=== PATIENT | male | born 1960 | race Caucasian/White ===

== ENCOUNTER 2022-04-12 11:27 | Outpatient (CLI) | payer OTHER, SELFPAY | END 2022-04-12 11:28 | disposition home or self-care (01) | PROVIDERS: PCP Family Medicine; Visit Provider Surgery | DX: Z12.11 Encounter for screening for malignant neoplasm of colon (principal); K63.5 Polyp of colon; K62.1 Rectal polyp | CPT/HCPCS: 45380; 45385; 88300; 88305; 99153; J2250; J3010 ==

== ENCOUNTER 2022-04-30 06:41 | Day surgery (SDC) | payer OTHER, SELFPAY ==
[2022-04-30] MEDS: KETOROLAC OPHTH 0.5% 1 DROP EYE-LEFT ×3 (07:00→07:10)
[2022-04-30] MEDS: TETRACAINE 0.5% OPHTH 1 DROP EYE-LEFT ×2 (07:00→07:05)
[2022-04-30 07:18] VITALS: BMI 35.6
[2022-04-30 07:23] VITALS: BP 137/97; PULSE 78; RESP 18; TEMP 36.7; O2SAT 97
[2022-04-30] MEDS: TETRACAINE 0.5% OPHTH 2 DROP EYE-LEFT (07:25)
[2022-04-30] MEDS: BALANCED SALT IRRIG SOLN 15 ML EYE-LEFT (07:25)
[2022-04-30] MEDS: SODIUM CHLORIDE 0.9 % (FLUSH) 10 ML SYRINGE IVF (07:31)
--- NOTE | 2022-04-30 07:33 | SUR.PREOP ---
The eye drops brought by the patient (Ketorolac and Prednisolone) are examined and I have determined they are labeled by the patient's pharmacy for this patient as prescribed by the surgeon. The bottles are intact, recently obtained and appear to be correct.[id number]
--- NOTE | 2022-04-30 08:24 | W.ANESCHARGE ---
Anesthesia Charges Start Date/Time Anesthesia Start Date: 04/30/22 Anesthesia Start Time: 07:52 Stop Date/Time Anesthesia Stop Date: 04/30/22 Anesthesia Stop Time: 08:25 Summary Emergency: No
--- NOTE | 2022-04-30 08:31 | W.ANESCHARGE ---
Anesthesia Charges Start Date/Time Anesthesia Start Date: 04/30/22 Anesthesia Start Time: 07:52 Stop Date/Time Anesthesia Stop Date: 04/30/22 Anesthesia Stop Time: 08:25 Summary Emergency: No
[2022-04-30 08:32] VITALS: BP 133/89; PULSE 68; RESP 16; TEMP 36.6; O2SAT 94
--- NOTE | 2022-04-30 10:58 | PM.PROC ---
Procedure Note Date Seen: 04/30/22 Will [facility] bill your pro fee for this procedure?: Yes Procedure Description: SURGEON: Eloina Morton MD PREOPERATIVE DIAGNOSIS: Mature cataract, left eye. POSTOPERATIVE DIAGNOSIS: Mature cataract, left eye. NAME OF OPERATION: Phacoemulsification of cataract with posterior chamber intraocular lens implantation in the left eye with trypan blue. ANESTHESIA: Topical. ESTIMATED BLOOD LOSS: Less than 2 cc. COMPLICATIONS: None. PATHOLOGY SPECIMEN: None. INDICATIONS: See consult note for details. The risks, benefits and alternatives of the procedure were explained to the patient, who elected to proceed and signed informed consent to do so. PROCEDURE: The patient was brought to the pre-holding area where the left eye was identified as the operative eye. I placed my initials above this eye. The patient received eye drops consisting of 0.5% tetracaine, 1% tropicamide, 10% phenylephrine, and 0.5% ketorolac. The patient was then brought to the operating room where the left eye was again identified as the operative eye. The eye was prepped with Betadine and draped in the usual sterile ophthalmic fashion. A #15 super-sharp blade was used to create a paracentesis site. 1% non-preserved intracameral lidocaine was injected into the anterior chamber. An air bubble was injected into the anterior chamber. Trypan blue was injected posterior to the air bubble in order to stain Endocoat was injected into the anterior chamber. A 2.4 mm keratome was used to create a three-plane self-sealing incision 1 mm anterior to the temporal limbus. A cystotome was used to create an anterior capsular leaflet. The Utrata forceps were used to extend this to form a continuous curvilinear capsulorrhexis. Hydrodissection was performed. The cataract was removed with phacoemulsification using the [id number] technique. The irrigation and aspiration tip was used to remove the remaining cortex. Healon was injected into the capsular bag. An JOANIE ZCB00 intraocular lens of 20.5 diopters was injected into the capsular bag. The irrigation and aspiration tip was used to remove the remaining viscoelastic. Balanced salt solution on a cannula was used to hydrate the wound, and the wound was found to be watertight. The pupil was noted to be round. DISPOSITION: The patient was taken to the recovery room and discharged to home in stable condition. The patient was instructed to call me or go to the emergency department with any sudden change, including dramatic loss of vision, severe pain in the eye or eyebrow region, nausea, or vomiting. The patient will follow up in the clinic tomorrow morning. Surgeon: Eloina Morton MD
== END 2022-04-30 09:00 | disposition home or self-care (01) ==
PROVIDERS: PCP Family Medicine; Visit Provider Ophthalmology
PROC: (CPT 66984; principal; 2022-04-30 06:45)
DX: H25.89 Other age-related cataract (principal)
CPT/HCPCS: 66984; 00142; A9270; J2250; J3010; V2632

== ENCOUNTER 2022-11-16 07:30 | Outpatient (CLI) | payer OTHER, SELFPAY | END 2022-11-16 07:31 | disposition home or self-care (01) | LOC: NFLDREF 11-18 06:42 | PROVIDERS: PCP Family Medicine; Referring Provider Family Medicine; Visit Provider Family Medicine | DX: Z00.00 Encounter for general adult medical examination without abnormal findings (principal); E11.9 Type 2 diabetes mellitus without complications; M10.9 Gout, unspecified; I10 Essential (primary) hypertension; E78.5 Hyperlipidemia, unspecified; Z12.5 Encounter for screening for malignant neoplasm of prostate | CPT/HCPCS: 80053; 80061; 82043; 82570; 84153 ==

== ENCOUNTER 2023-02-24 09:36 | Outpatient (CLI) | payer OTHER, SELFPAY | END 2023-02-24 09:37 | disposition home or self-care (01) | LOC: NFLDREF 12:09 | PROVIDERS: PCP Family Medicine; Referring Provider Family Medicine; Visit Provider Family Medicine | DX: E11.9 Type 2 diabetes mellitus without complications (principal) | CPT/HCPCS: 82043; 82570 ==

== ENCOUNTER 2023-09-08 07:40 | Outpatient (CLI) | payer MEDICARE, BC, SELFPAY ==
--- OUTSIDE RECORDS SUMMARY | 2023-09-14 18:32 | XMS_ITS | Encounter Summary ---
Author Name Unknown Organization [facility] Address [address] [place] [address] Care Team Providers Care Payment Poster Name Role Phone Unavailable Primary Care Provider Unavailabl e Reason for Visit * Reason Onset Date Comments Pre-visit Intake 05/25/2023 Encounter Details Date Type Department Care Team (Latest Contact Info) Description 05/25/2023 1:00 PM CDT Clinical Communication Virtual Review in [place], [place] [address] [place], [place] [id number] Pre-visit Intake Social History Tobacco Use Types Packs/Day Years Used Date Smoking Tobacco: Never Smokeless Tobacco: Never Overall Financial Resource Strain (CARDIA) Answe r Date Recorded How hard is it for you to pa y for the very basics like food, housing, medical care, and heating? Not hard at all 05/21/2023 Exercise Vital Sign Answer Date Recorde d On average, how many days pe r week do you engage in moderate to strenuous exercise (like a brisk walk)? 7 days 05/21/2023 On average, how many minutes do you engage in exercise at this level? 150+ min 05/21/2023 Hunger Vital Sign Answer Date Recorded Within the past 12 months, y ou worried that your food would run out before you got the money to buy more. Never true 05/21/20 23 Within the past 12 months, t he food you bought just didn't last and you didn't have money to get more. Never true 05/21/2023 PRAPARE - Transportation Answer Date Re corded In the past 12 months, has l ack of transportation kept you from medical appointments or from getting medications? No 05/06 In the past 12 months, has l ack of transportation kept you from meetings, work, or from getting things needed for daily living? No 05/21/2023 Nutrition Answer Date Recorded Nutrition: EVOO Fat Source Unknown 05/21 On average, how many serving s of fruits and vegetables do you eat per day (serving size is equal to 1 cup or approximately the size of a tennis ball)? 5 or more 05/21/2023 Dental Answer Date Recorded Dental: Regular Dentist Yes 05/21/20 Employment Answer Date Recorded Employment status Employed and actively working without restrictions 05/21/2023 Housing Stability Answer Date Recorded What is your living situation today? I have a [facility] place to live 05/21/2023 Sex and Gender Information Value Date Recorded Sex Assigned at Male 01/01/2018 1:22 PM CDT Gender Identity Male 01/01/2018 1:22 PM CDT Sexual Orientation Straight 01/01/2018 1: 22 PM CDT documented as of this encounter Plan of Treatment Not on file documented as of this encounter Visit Diagnoses Not on filedocumented in this encounter
--- OUTSIDE RECORDS SUMMARY | 2023-09-14 18:32 | XMS_ITS | Encounter Summary ---
Author Name Unknown Organization [facility] Address [address] [place] [address] Care Team Providers Care Marketing Secretary Name Role Phone Unavailable Primary Care Provider Unavailabl e Reason for Visit * Appointment Request (Routine) - Closed Specialty Diagnoses / Procedures Referred By Donta danilele Referred To Contact Orthopedic Surgery Diagnoses Arthroplasty Total Knee Replacement Status Post Right Pain Knee Left Referral ID Status Reason Start Date Expiration Date Visits Re quested Visits Authorized [id number] Closed 03/07/2023 03/06/2024 1 1 Encounter Details Date Type Department Care Team (Latest Contact Info) Description 05/27/2023 10:15 AM CDT Comprehensive Visit Department of Orthopedic Surgery in [place], [place] [address] [place] [address] Ruben Pinzon M.D. [address] [place] [phone] Aftercare Total Knee Arthroplasty (Primary Dx) Social History Tobacco Use Types Packs/Day Years [...] money to buy more. Never true 05/21/20 Within the past 12 months, t he [...] your living situation today? I have a [facility] place to live 05/21/2023 Sex and Gender Information Value Date Recorded Sex Assigned at Male 01/01/2018 1:22 PM CDT Gender Identity Male 01/01/2018 1:22 PM CDT Sexual Orientation Straight 01/01/2018 1: 22 PM CDT documented as of this encounter Consult Notes * Ruben Pinzon M.D. - 05/27/2023 10:15 AM CDT REASON FOR CONSULT Patient is 62 y.o. and presents for evaluation of pain of his right total knee arthroplasty HISTORY OF PRESENT ILLNESS The patient originally had a knee replacement done in August of 2018 in [facility]. He would had a right total hip about a year prior to that. He tells me that he was not having a ton of pain in the knee prior to surgery. He does not feel like he is ever really done well since the operation. He has pain that is worse with the activity. It is generalized an anterior in nature. He is tried physical therapy chiropractor massage and anti-inflammatories without much relief. He wanted to ensure that there was nothing sinister going wrong with the implants. The current list of health issues include: Diabetes mellitus type 2, hypertension The surgical history is notable for: Right total knee arthroplasty as described above as well as a right total hip Social history: Patient denies smoking. He is . REVIEW OF SYSTEMS Review of Systems is unremarkable for shortness of breath, chest pain, recent dental issues, fever chills or sweats. OBJECTIVE PHYSICAL EXAM Ortho Exam Alert and oriented x3. No acute distress. Ambulates with a slightly antalgic gait on the right side. With regard to his right knee he has excellent range of motion from 0-125 degrees. He has no overall neutral alignment. He does have some soft tissue tenderness around the knee including over the pes anserine bursa region and distal IT band. He has no evidence of varus, valgus, or AP instability. He has no pain with passive range of motion about his hip above. IMAGING Reveals a right total knee replacement that appears to be well-fixed well- aligned without any evidence of loosening or wear. ASSESSMENT / PLAN 1. Painful right total knee arthroplasty performed elsewhere Had a long conversation the patient today regarding the current symptoms. We discussed all treatment options including operative and non-operative measures. At this point I do not see anything sinister going wrong with the knee today. Certainly, he has a component of soft tissue pain around the knee. I also reviewed his preoperative imaging with him that showed he had moderate arthritic change. He tells me he was not having a lot of pain prior to surgery. As such, I do not think any further surgical intervention on this knee is warranted. I have encouraged him to continue with conservative measures for now. I would be happy to see him back on an as-needed basis. All questions are answered. documented in this encounter Plan of Treatment Not on file documented as of this encounter Visit Diagnoses Diagnosis Aftercare Total Knee Arthroplasty- Primary documented in this encounter
--- OUTSIDE RECORDS SUMMARY | 2023-09-14 18:32 | XMS_ITS | Referral Summary ---
Author Name Unknown Organization [facility] Address [address] [place] [address] Care Team Providers Care Comp Field Case Manager Name Role Phone Unavailable Primary Care Provider Unavailabl e Source Comments Patient records contain information from all sites at [facility]. For routine questions regarding patient records, call [phone] during business hours, M-F 8:00 AM - 5:00 PM Central Time. Record requests for emergency care only can be directed to [phone] at any time.[facility] Allergies Active Allergy Reactions Criticality Noted Date Comments Atorvastatin Myalgia 09/07/2012 Pravastatin Myalgia 11/04/2015 Simvastatin Myalgia 08/27/2010 Symptoms recurred after stop/restart med. 08/27/2010 Medications Medication Sig Dispensed Refills Start Date End Date Status allopurinol (for_ZYLOPRIM) 300 mg tablet Take 300 mg by mouth. 0 11/04/2015 Active amoxicillin (for_AMOXIL) 500 mg capsule 0 10/31/[address] tablet Take by mouth. 0 03/15/2007 Active hydroCHLOROthiazide (for_HYDRODIURIL) 25 mg tablet 0 10/13/2017 Active lisinopril (for_PRINIVIL,ZESTRIL) 20 mg tablet 0 10/13/2017 Active cholecalciferol, vitamin D3, 25 mcg (1,000 Unit) tablet Take 1,000 Units by mouth daily. 0 Active MAGNESIUM GLYCINATE ORAL Take 2 tablets by mouth. 0 Active Lactobacillus acidophilus capsule Take 1 capsule by mouth 2 (two) times a day with meals. 0 Active UNABLE TO FIND Med Name: flax seed oil daily 0 Active tamsulosin (FLOMAX) 0.4 mg 24 hr capsule 0 06/29/2019 Acti ve metFORMIN (GLUCOPHAGE) 500 mg tablet Take 500 mg by mouth 2 (two) times a day with meals. 0 09/22/2021 Active Active Problems Problem Noted Date Diagnosed Date Prostatitis Bacterial Personal History 2 Cancer Prostate Family History 09/24/2019 Prostatitis Chronic 09/24/2019 Deficiency Vitamin D 10/31/2014 Screening Cancer Colon 10/27/2011 Overview: Overview: Colonoscopy 10/2011 normal repeat in 10 years Unilateral Inguinal Hernia W ithout Obstruction Or Gangrene Not Specified As Recurrent 10/07/2011 Overview: Overview: Right: Asymptomatic. Noted 04/2009. Elevated prostate specific antigen (PSA) 009 Overview: Overview: Recheck in 4 months Gout 03/15/2007 Hyperlipidemia Mixed 03/15/2007 Hypertension Essential Primary 03/15/2007 Diabetes Mellitus Type 2 Without Complication Social History Tobacco Use Types Packs/Day Years [...] your living situation today? I have a [facility] place to live 05/21/2023 Sex and Gender Information Value Date Recorded Sex Assigned at Male 01/01/2018 1:22 PM CDT Gender Identity Male 01/01/2018 1:22 PM CDT Sexual Orientation Straight 01/01/2018 1: 22 PM CDT Last Filed Vital Signs Vital Sign Reading Time Taken Comments Blood Pressure 117/84 12/02/2021 10:53 AM CDT Pulse 109 12/02/2021 10:53 AM CDT Temperature 37.3 ??C (99.1 ??F) 09/24/2019 1:30 PM CS T Respiratory Rate 20 04/05/2018 8:56 AM CDT Oxygen Saturation 96% 12/02/2021 10:53 AM CDT RA Inhaled Oxygen Concentration - - Weight - - Height - - Body Mass Index - - Plan of Treatment Not on file
--- OUTSIDE RECORDS SUMMARY | 2023-09-14 18:32 | XMS_ITS | Encounter Summary ---
Author Name Unknown Organization [facility] Address [address] [place] [address] Care Team Providers Care Produce Team Lead Name Role Phone Unavailable Primary Care Provider Unavailabl e Reason for Referral * Outpatient (Routine) - Closed Specialty Diagnoses / Procedures Referred By Donta danielle Referred To Contact Diagnoses Arthroplasty Total Knee Replacement Status Post Right Procedures DX Knee Right Standing Right 3 Views [place] Nunn P.A.-C., M.S. [address] [place] [phone] [facility] Referral ID Status Reason Start Date Expiration Date Visits Re quested Visits Authorized [id number] Closed 03/28/2023 03/27/2024 1 1 Reason for Visit * Outpatient (Routine) - Closed Specialty Diagnoses / Procedures Referred By Donta danielle Referred To Contact Diagnoses Arthroplasty Total Knee Replacement Status Post Right Procedures DX Knee Right Standing Right 3 Views [place] Nunn P.A.-C., M.S. [address] [place] [phone] [facility] Referral ID Status Reason Start Date Expiration Date Visits Re quested Visits Authorized [id number] Closed 03/28/2023 03/27/2024 1 1 Encounter Details Date Type Department Care Team (Latest Contact Info) Description 05/27/2023 8:41 AM CDT - 05/27/2023 11:59 PM CDT Hospital Encounter Department of Radiology, [facility], in [place], [place] [address] [place] [phone] El[place] Nunn P.A.-C., M.S. [address] [place] [phone] Arthroplasty Total Knee Replacement Status Post Right Discharge Disposition: Home or Self Care Social History Tobacco Use Types Packs/Day Years [...] your living situation today? I have a [facility] place to live 05/21/2023 Sex and Gender Information Value Date Recorded Sex Assigned at Male 01/01/2018 1:22 PM CDT Gender Identity Male 01/01/2018 1:22 PM CDT Sexual Orientation Straight 01/01/2018 1: 22 PM CDT documented as of this encounter Medications at Time of Discharge Medication Sig Dispensed Refills Start Date End Date allopurinol (for_ZYLOPRIM) 300 mg tablet Take 300 mg by mouth. 0 11/04/2015 amoxicillin (for_AMOXIL) 500 mg capsule 0 10/31/[address] tablet Take by mouth. 0 03/15/2007 cholecalciferol, vitamin D3, 25 mcg (1,000 Unit) tablet Take 1,000 Units by mouth daily. 0 hydroCHLOROthiazide (for_HYDRODIURIL) 25 mg tablet 0 10/13/2017 Lactobacillus acidophilus capsule Take 1 capsule by mouth 2 (two) times a day with meals. 0 lisinopril (for_PRINIVIL,ZESTRIL) 20 mg tablet 0 10/13/2017 MAGNESIUM GLYCINATE ORAL Take 2 tablets by mouth. 0 metFORMIN (GLUCOPHAGE) 500 mg tablet Take 500 mg by mouth 2 (two) times a day with meals. 0 09/22/2021 tamsulosin (FLOMAX) 0.4 mg 24 hr capsule 0 06/29/2019 UNABLE TO FIND Med Name: flax seed oil daily 0 documented as of this encounter Plan of Treatment Not on file documented as of this encounter Procedures Procedure Name Priority Date/Time Associated Diagnosis Comments DX KNEE RIGHT STANDING RIGHT 3 VIEWS RAD - Routine (most inpatients and all outpatients) 05/27/2023 9:15 AM CDT Arthroplasty Total Knee Replacement Status Post Right documented in this encounter Results * DX Knee Right Standing Right 3 Views (05/27/2023 9:15 AM CDT) Anatomical Region Laterality Modality Lower Extremity, Knee, Muscu loskeletal RST LOS, Musculoskeletal ARZ LOS, Muskuloskeletal FLA LOS Right Compu gerald Tomography 05/27/2023 9:49 AM CDT Impressions 05/27/2023 9:50 AM CDT Right TKA with patellar resurfacing. No periprosthetic lucency or fracture. Trace joint effusion. Vascular calcifications. Mild soft tissue swelling at the anterior aspect of the knee, slightly decreased compared to prior. Severe osteoarthritis of the left knee with chondrocalcinosis. Narrative 05/27/2023 9:50 AM CDT EXAM: ??DX KNEE RIGHT STANDING RIGHT 3 VIEWS Procedure Note Deon Oglesby M.D. - 05/27/2023 EXAM: DX KNEE RIGHT STANDING RIGHT 3 VIEWS IMPRESSION: Right TKA with patellar resurfacing. No periprosthetic lucency orfracture. Trace joint effusion. Vascular calcifications. Mild soft tissue swelling at theanterior aspect of the knee, slightly decreased compared to prior. Severe osteoarthritis of the leftknee with chondrocalcinosis. El[place] Nunn P.A.-C., M.S. IMG DIAGNOS TIC IMAGING PROCEDURES documented in this encounter Visit Diagnoses Diagnosis Arthroplasty Total Knee Replacement Status Post Right documented in this encounter
--- OUTSIDE RECORDS SUMMARY | 2023-09-14 18:32 | XMS_ITS | Encounter Summary ---
Author Name Unknown Organization [facility] Address [address] [place] [address] Care Team Providers Care Enterprise Analyst Name Role Phone Unavailable Primary Care Provider Unavailabl e Reason for Visit * Reason Onset Date Comments Pre-scheduling Questionnaire 03/07/2023 Encounter Details Date Type Department Care Team (Latest Contact Info) Description 03/07/2023 Clinical Communication Department of Orthopedic Surgery in [place], [place] [address] [place] [phone] Prescheduling, Provider Pre-scheduling Questionnaire Social History Tobacco Use Types Packs/Day Years Used Date Smoking Tobacco: Never Smokeless Tobacco: Never Nutrition Answer Date Recorded Nutrition: EVOO Fat Source Unknown 11/10 Nutrition: Servings of Fruits/Vegetables per Day Not on file 11/10/2020 Dental Answer Date Recorded Dental: Regular Dentist Unknown 11/13/19 21 Sex and Gender Information Value Date Recorded Sex Assigned at Male 01/01/2018 1:22 PM CDT Gender Identity Male 01/01/2018 1:22 PM CDT Sexual Orientation Straight 01/01/2018 1: 22 PM CDT documented as of this encounter Miscellaneous Notes * Telephone Encounter - Zhanna Jimenez - 03/07/2023 1:33 PM CDT ORTHO HIP/KNEE PRE-SCHEDULING QUESTION SET ([id number]) documented in this encounter Plan of Treatment Not on file documented as of this encounter Visit Diagnoses Not on filedocumented in this encounter
--- OUTSIDE RECORDS SUMMARY | 2023-09-14 18:32 | XMS_ITS | Encounter Summary ---
Author Name Unknown Organization [facility] Address [address] [place] [address] Care Team Providers Care Sports Equipment Racker Name Role Phone Unavailable Primary Care Provider Unavailabl e Reason for Referral * Outpatient (Routine) - Closed Specialty Diagnoses / Procedures Referred By Joanaac t Referred To Contact Diagnoses Arthroplasty Total Knee Replacement Status Post Right Procedures DX Hip to Ankle Standing Elba Nunn P.A.-C., M.S. [address] [place] [address] [facility] Referral ID Status Reason Start Date Expiration Date Visits Re quested Visits Authorized [id number] Closed 03/28/2023 03/27/2024 1 1 * Outpatient (Routine) - Closed Specialty Diagnoses / Procedures Referred By Contac t Referred To Contact Diagnoses Arthroplasty Total Knee Replacement Status Post Right Procedures DX Knee Right Standing Right 3 Views Elba Nunn P.A.-C., M.S. [address] [place] [phone] [facility] Referral ID Status Reason Start Date Expiration Date Visits Re quested Visits Authorized [id number] Closed 03/28/2023 03/27/2024 1 1 Reason for Visit * Reason Onset Date Comments Appt Request 03/25/2023 Encounter Details Date Type Department Care Team (Late st Contact Info) Description 03/25/2023 Clinical Communication Department of Orthopedic Surgery in [place], [place] [address] [place] [address] Ruben Pinzon M.D. [address] [place] [address] Appt Request Social History Tobacco Use Types Packs/Day Years [...] encounter Miscellaneous Notes * Telephone Encounter - Gertrudis Burns - 03/28/2023 8:36 AM CDT I spoke to patient and we have him scheduled on 05/27. He was ok with the appt date Thank you, Gertrudis documented in this encounter Plan of Treatment Not on file documented as of this encounter Results * DX Hip to Ankle Standing (05/27/2023 9:16 AM CDT) Anatomical Region Laterality Modality Lower Extremity, Hip, Femur, Knee, TibFib, Ankle, Musculoskeletal RST LOS, Musculoskeletal ARZ LOS, Muskuloskeletal FLA LOS N/A Computed Tomography 05/27/2023 9:55 AM CDT Impressions 05/27/2023 9:57 AM CDT Full-length views of both lower extremities obtained for orthopedic measurement purposes. Uncemented right JUJU. Right TKA. Degenerative arthritis left knee with medial compartment narrowing and chondrocalcinosis. Genu varus alignment both lower extremities, more marked on the left. Narrative 05/27/2023 9:57 AM CDT EXAM: ??DX HIP TO ANKLE STANDING Procedure Note Moises Hart M.D. - 05/27/2023 EXAM: DX HIP TO ANKLE STANDING IMPRESSION: Full-length views of both lower extremities obtained for orthopedicmeasurement purposes. Uncemented right JUJU. Right TKA. Degenerative arthritis leftknee with medial compartment narrowing and chondrocalcinosis. Genu varus alignment both lowerextremities, more marked on the left. Elba Nunn P.A.-C., M.S. [facility] DIAGNOS TIC IMAGING PROCEDURES * DX Knee Right Standing Right 3 [...] P.A.-C., M.S. IMG DIAGNOS TIC IMAGING PROCEDURES * Sedimentation Rate (05/27/2023 8:36 AM CDT) Pathologist [facility] Sedimentation Rate, B 2 2 - 20 mm/h 05/27/2023 10:07 AM CDT DTL Blood (Blood, Venous) 05/27/2023 8:36 AM CDT 05/27/2023 8:55 AM CDT Elba Nunn P.A.-C., M.S. LAB BLOOD A DD-ON Performing Organization Address City/[facility] Co de Phone Number [facility] [address] [place] [address] * CRP (C-Reactive Protein) (05/27/2023 8:36 AM CDT) [facility] C-Reactive Protein (CRP), S <3.0 <5.0 mg/L 05/27/2023 9:24 AM CDT DTL Blood (Blood, Venous) 05/27/2023 8:36 AM CDT 05/27/2023 9:08 AM CDT Elba Nunn P.A.-C., M.S. LAB BLOOD A DD-ON Performing Organization Address [facility] de Phone Number [facility] [address] [place], [place] [id number] [place] [address] * (ABNORMAL) CBC with Differential, Blood (05/27/2023 8:36 AM CDT) Pathologist [facility] Hemoglobin 17.6(H) 13.2 - 16.6 g/dL 05/27/2023 9:18 AM CDT DTL Hematocrit 52.1(H) 38.3 - 48.6 % 05/27/2023 9:18 AM CDT DTL Erythrocytes 5.73(H) 4.35 - 5.65 x10(12)/L 05/27/2023 9:18 AM CDT DTL MCV 90.9 78.2 - 97.9 fL 05/27/2023 9:18 AM CDT DTL RBC Distrib Width 13.4 11.8 - 14.5 % 05/27/2023 9:18 AM CDT DTL Platelet Count 275 135 - 317 x10(9)/L 05/27/2023 9:18 AM CDT DTL Leukocytes 7.6 3.4 - 9.6 x10(9)/L 05/27/2023 9:18 AM CDT DTL Neutrophils 4.25 1.56 - 6.45 x10(9)/L 05/27/2023 9:18 AM CDT DHPM Lymphocytes 2.43 0.95 - 3.07 x10(9)/L 05/27/2023 9:18 AM CDT DTL Monocytes 0.63 0.26 - 0.81 x10(9)/L 05/27/2023 9:18 AM CDT DTL Eosinophils 0.21 0.03 - 0.48 x10(9)/L 05/27/2023 9:18 AM CDT DTL Basophils 0.05 0.01 - 0.08 x10(9)/L 05/27/2023 9:18 AM CDT DTL Blood (Blood, Venous) 05/27/2023 8:36 AM CDT 05/27/2023 8:55 AM CDT Elba Nunn P.A.-C., M.S. LAB BLOOD A DD-ON [facility] [address] [place] [address], [place] DTL [facility] [address] [place] [address] DHPM [facility] [address] [place] [address] documented in this encounter Visit Diagnoses Diagnosis Arthroplasty Total Knee Replacement Status Post Right- Primary Arthroplasty Total Knee Replacement Status Post Right Arthroplasty Total Knee Replacement Status Post Right documented in this encounter
--- OUTSIDE RECORDS SUMMARY | 2023-09-14 18:32 | XMS_ITS | Encounter Summary ---
Author Name Unknown Organization [facility] Address [address] [place] [address] Care Team Providers Care Clerk Of Superior Court Name Role Phone Unavailable Primary Care Provider Unavailabl e Reason for Visit * Reason Onset Date Comments [facility] 03/07/2023 Orthopedic surge ry Encounter Details Date Type Department Care Team (Latest Contact Info) Description 03/07/2023 Clinical Communication Department of Orthopedic Surgery in [place], [place] [address] [place] [address] Provider, Unknown [facility] (Orthopedic surgery ) Social History Tobacco Use Types Packs/Day Years [...]
--- OUTSIDE RECORDS SUMMARY | 2023-09-14 18:32 | XMS_ITS | Encounter Summary ---
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 [address] [place] [phone] 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 [address] [place] [phone] [facility] Referral ID Status Reason Start Date Expiration Date Visits Re quested Visits Authorized [id number] Closed 03/28/2023 03/27/2024 1 1 Encounter Details Date Type Department Care Team (Latest Contact Info) Description 05/27/2023 8:41 AM CDT - 05/27/2023 11:59 PM CDT Hospital Encounter Department of Radiology, [facility], in [place], [place] [address] [place] [address] Elba Nunn P.A.-C., M.S. [address] [place] [address] Arthroplasty Total Knee Replacement Status Post Right [...] your living situation today? I have a [facility] place to live 05/21/2023 Sex and [...] Name Priority Date/Time Associated Diagnosis Comments DX HIP TO ANKLE STANDING RAD - Routine (most inpatients and all outpatients) 05/27/2023 9:16 AM CDT Arthroplasty Total Knee Replacement Status Post Right documented in this encounter Results * DX Hip to [...] on the left. Elba Nunn P.A.-C., M.S. IMG DIAGNOS TIC IMAGING PROCEDURES documented in this encounter Visit Diagnoses Diagnosis Arthroplasty Total Knee Replacement Status Post Right documented in this encounter
--- OUTSIDE RECORDS SUMMARY | 2023-09-14 18:32 | XMS_ITS | Encounter Summary ---
Author Name Unknown Organization [facility] Address [address] [place] [address] Care Team Providers Care Lay Out Maker Name Role Phone Unavailable Primary Care Provider Unavailabl e Encounter Details Date Type Department Care Team (Latest Contact Info) Description 05/27/2023 8:26 AM CDT - 05/27/2023 8:40 AM CDT Hospital Encounter Department of Laboratory Medicine and Pathology, [facility] in [place], [place] [address] [place] [phone] Elba Nunn P.A.-C., M.S. [address] [place] [phone] Arthroplasty Total Knee Replacement Status Post Right [...] the money to buy more. Never true 09/16/20 23 Within the past 12 months, t [...] your living situation today? I have a [facility] place to live 05/21/2023 Sex and [...] Procedure Name Priority Date/Time Associated Diagnosis Comments SEDIMENTATION RATE, B Routine 05/27/2023 8:36 AM CDT Arthroplasty Total Knee Replacement Status Post Right CBC WITH DIFFERENTIAL, B Routine 05/27/2023 8:36 AM CDT Arthroplasty Total Knee Replacement Status Post Right C-REACTIVE PROTEIN (CRP), S/P Routine 05/27/2023 8:36 AM CDT Arthroplasty Total Knee Replacement Status Post Right documented in this encounter Results * Sedimentation Rate (05/27/2023 8:36 AM CDT) Sedimentation Rate, B 2 2 - 20 mm/h 05/27/2023 10:07 AM CDT DTL Blood (Blood, Venous) 05/27/2023 8:36 AM CDT 05/27/2023 8:55 AM CDT Elba Nunn P.A.-C., M.S. LAB BLOOD A DD-ON Performing Organization Address City/[facility]/ZIP Co de Phone Number [facility] [address] [place] [address], [facility] 200 [place] [address] * CRP (C-Reactive Protein) (05/27/2023 8:36 AM CDT) C-Reactive Protein (CRP), S <3.0 <5.0 mg/L 05/27/2023 9:24 AM CDT DTL Blood (Blood, Venous) 05/27/2023 8:36 AM CDT 05/27/2023 9:08 AM CDT Elba Nunn P.A.-C., M.S. LAB BLOOD A DD-ON [facility] [address] [place] [address], [facility] DTL [facility] [address] [place] [address] * (ABNORMAL) CBC with Differential, Blood (05/27/2023 8:36 AM CDT) Hemoglobin 17.6(H) 13.2 - 16.6 g/dL 05/27/2023 [...] Nunn P.A.-C., M.S. LAB BLOOD A DD-ON [facility] [address] [place] [address], [place] DTL [facility] [address] [place] [address] [facility] [address] [place] [address] documented in this encounter Visit Diagnoses Diagnosis Arthroplasty Total Knee Replacement Status Post Right documented in this encounter
--- OUTSIDE RECORDS SUMMARY | 2023-09-14 18:32 | XMS_ITS | Clinical Summary ---
Author Name Unknown Organization [facility] Address [address] [place] [address] Care Team Providers Care Server Software Engineer Name Role Phone Unavailable Primary Care Provider Unavailabl e Source Comments Patient records contain information from all sites at [facility]. For routine questions regarding patient records, call [phone] during business hours, M-F 8:00 AM - 5:00 PM Central Time. Record requests for emergency care only can be directed to [phone] at any time.[facility] Allergies Active Allergy Reactions Criticality Noted Date [...] 03/15/2007 Diabetes Mellitus Type 2 Without Complication Family History Medical History Relation Name Comments No Known Problems Brother Prostate cancer Father Breast cancer Mother Depression Mother Diabetes mellitus type II Mother Heart disease Mother Hypertension Mother Depression Sister Relation Name Status Comments Brother Alive Father Mother Sister Alive Social History Tobacco Use Types Packs/Day Years [...] your living situation today? I have a [facility] place to live 05/21/2023 Sex and [...] Mass Index - - Plan of Treatment Health Maintenance Due Date Last Done Comments CT Colonography 1958 Cologuard 1960 Colonoscopy 1958 Colorectal Cancer Screening 1958 Diabetic Office Visit with F oot Exam 1958 Dilated Eye Exam 1958 FIT 1958 HIV Screening 1958 Hepatitis C Screening 1958 Urine Albumin 1958 COVID-19 Vaccine (#1) 04/04/1959 Pneumococcal vaccine (0-64 y ears) (1 of 2 - PCV) 1964 Zoster Vaccines (1 of 2) 2008 Hemoglobin A1C 09/30/2018 03/30/2018 Hepatitis B Vaccines (1 of 3 - Risk 3-dose series) 2018 Lipid (Cholesterol) Screening 10/20/2018 10/20/2017 Creatinine Level (Kidney Fun ction Test) 03/30/2019 03/30/2018, 10/20/2017 Potassium Level 03/30/2019 03/30/2018, 10/20/2017 Sodium Level 03/30/2019 03/30/2018, 10/20/2017 Depression Screening (Annual PHQ-2) 09/05/2022 Office Visit for Blood Press ure Check / Re-check 12/02/2022 12/02/2021 Influenza Vaccine (#1) 2023 0, 08/27/2010, 07/25/2009, Additional history exists DTaP,Tdap,and Td Vaccines (3 - Td or Tdap) 10/31/2027 10/31/2017, 11/23/2007, 10/01/1999
--- OUTSIDE RECORDS SUMMARY | 2023-09-14 18:32 | XMS_ITS ---
Author Name Unknown Organization [facility] Address [address] [place] [address] Care Team Providers Care Education And Development Manager Name Role Phone Unavailable Unavailable Unavailable Surgery Details Not on file Complications Check Surgery Details section. Procedure Estimated Blood Loss Check Surgery Details section. Procedure Findings Check Surgery Details section. Procedure Specimens Taken Check Surgery Details section.
--- OUTSIDE RECORDS SUMMARY | 2023-09-14 18:33 | XMS_ITS | Clinical Summary ---
Author Name Unknown Organization [facility] Address [place], [place] [address] Care Team Providers Care Paperhanger Assistant Name Role Phone Unavailable Primary Care Provider Unavailabl e Allergies Active Allergy Reactions Criticality Noted Date Comments Atorvastatin Myalgia 09/07/2012 Pravastatin Myalgia 11/04/2015 Simvastatin Myalgia 08/27/2010 Symptoms recurred after stop/restart med. 08/27/2010 Medications Medication Sig Dispensed Refills Start Date End Date Status ASPIRIN 81 MG TAB, DELAYED RELEASE take 1 tablet (81 mg) by oral route once daily 0 03/15/2007 Active lisinopril (PRINIVIL; ZESTRIL) 20 mg tabletIndications:Ess ential hypertension Take 1 tablet by mouth once daily. 90 tablet 3 11/04/2015 Active hydrochlorothiazide (HCTZ) 25 mg tabletIndications:Ess ential hypertension Take 1 tablet by mouth once daily. 90 tablet 3 11/04/2015 Active allopurinol (ZYLOPRIM) 300 mg tabletIndications:Gou ty arthropathy Take 1 tablet by mouth once daily. 90 tablet 3 11/04/2015 Active nitrofurantoin macrocrystals/monohyd rate (MACROBID) 100 mg capsuleIndications:Re current UTI (urinary tract infection) Take 1 capsule by mouth 2 times daily. 14 capsule 0 11/24/2015 Active Active Problems Problem Noted Date Diagnosed Date Vitamin D deficiency 10/31/2014 Screen for colon cancer 10/27/2011 Overview: Colonoscopy 10/2011 normal repeat in 10 years Inguinal hernia without ment ion of obstruction or gangrene, unilateral or unspecified, (not specified as recurrent) 10/07/2011 Overview: Right: Asymptomatic. Noted 04/2009. Elevated prostate specific antigen (PSA) 009 Overview: Recheck in 4 months Routine general medical exam ination at a health care facility 03/20/2008 Overview: colonoscopy recommended 09/01/2009 Mixed hyperlipidemia 03/15/2007 Gouty Arthropathy 03/15/2007 Unspecified essential hypertension 03/15/2007 Type II or unspecified type diabetes mellitus without mention of complication, not stated as uncontrolled 08/04/2006 Resolved Problems Problem Noted Date Diagnosed Date Resolved Date 04/29/2009 09/01/2009 Immunizations Name Administration Dates Next Due Influenza, IIV3 (Age >=3 years) 08/27/2010,07/25,07/06/2008,08/02/2007 Td (Age >=7 Years) 09/05/1997 Tdap 11/23/2007 Family History Medical History Relation Name Comments Cancer-prostate Father Urban Cancer-breast Mother Shanice Diabetes Mother Shanice Hypertension Mother Shanice Heart Disease Neg. Hypertension Sister Evelia Psychiatric illness Sister Evelia Anesthesia Problem No Family History Blood Disease No Family History Relation Name Status Comments Brother Urban Alive Father Urban Mother Shanice Neg. Sister Evelia Alive Social History Tobacco Use Types Packs/Day Years Used Date Smoking Tobacco: Never Smokeless Tobacco: Never Tobacco Cessation:Counseling Given: Yes Alcohol Use Standard Drinks/Week Comments No 0 (1 standard drink = 0.6 oz pur e alcohol) Sex and Gender Information Value Date Recorded Sex Assigned at Not on file Gender Identity Not on file Sexual Orientation Not on file Obstetrics History Last Filed Vital Signs Vital Sign Reading Time Taken Comments Blood Pressure 152/104 11/21/2015 12:06 PM CDT Pulse 98 11/21/2015 12:04 PM CDT Temperature 36.9 ??C (98.5 ??F) 11/04/2015 7:58 AM CS T Respiratory Rate - - Oxygen Saturation 97% 11/21/2015 12: 04 PM CDT Inhaled Oxygen Concentration - - Weight 115.8 kg (255 lb 3.2 oz) 016 12:04 PM CDT Height 177.3 cm (5' 9.8) 11/04/2015 7:58 AM TALK SHOW HOST Body Mass Index 36.82 11/04/2015 7:58 AM TALK SHOW HOST Plan of Treatment Health Maintenance Due Date Last Done Comments COVID-19 vaccine series (#1) 04/04/1961 HIV for age 15-65 1973 Hepatitis C screening for age 18-79 1976 Zoster (shingles) series for age 50+ (1 of 2) 2008 BMI (ht and wt on same day) for age 18+ 11/03/2016 11/04/2015 Depression screening for age 12+ 11/03/2016 11/04/2015 Tetanus booster 11/22/2017 11/23/2007, 09/05/1997 Lipids for age 45-75 10/29/2020 10/29/2015, 12/12/2014, 10/23/2014, Additional history exists Colonoscopy through age 75 10/27/2021 10/27/2011, Influenza for age 50-64 05/06/2023 10/07/19 12 (Declined), 08/27/2010, 07/25/2009, Additional history exists Tdap Completed 11/23/2007 Pneumococcal series for age 6-64 Aged Out No longer eligible based on patient's age to complete this topic
== END 2023-09-08 07:41 | disposition home or self-care (01) ==
LOC: NFLDREF 09-14 18:31
PROVIDERS: PCP Family Medicine; Referring Provider Family Medicine; Visit Provider Family Medicine
DX: Z00.00 Encounter for general adult medical examination without abnormal findings (principal); E11.9 Type 2 diabetes mellitus without complications; E78.5 Hyperlipidemia, unspecified; I10 Essential (primary) hypertension; M10.9 Gout, unspecified; R97.20 Elevated prostate specific antigen [PSA]
CPT/HCPCS: 80053; 80061; 82043; 82570; G0103

== ENCOUNTER 2024-09-04 07:52 | Outpatient (CLI) | payer MEDICARE, BC, SELFPAY | END 2024-09-04 07:53 | disposition home or self-care (01) | LOC: NFLDREF 09-07 05:26 | PROVIDERS: PCP Family Medicine; Referring Provider Family Medicine; Visit Provider Family Medicine | DX: Z01.818 Encounter for other preprocedural examination (principal); E11.9 Type 2 diabetes mellitus without complications; N40.0 Benign prostatic hyperplasia without lower urinary tract symptoms; Z12.5 Encounter for screening for malignant neoplasm of prostate | CPT/HCPCS: 80053; 80061; 82043; 82570; G0103 ==

== ENCOUNTER 2024-10-08 07:06 | Day surgery (SDC) | payer MEDICARE, BC, SELFPAY ==
[2024-10-08] VITALS (8 sets, daily range): BP systolic 93–126; BP diastolic 71–92; PULSE 67–89; RESP 16; TEMP 36.7–36.9; O2SAT 93–95; BMI 35.4
--- OUTSIDE RECORDS SUMMARY | 2024-10-08 07:10 | XMS_ITS | Clinical Summary ---
Author Organization [facility] Address [place], [place] [address] Care Team Providers Care Concrete Finishing Machine Operator Name Role Phone Unavailable Primary Care Provider Unavailabl e Allergies Active Allergy Reactions Criticality Noted Date Comments Atorvastatin Myalgia 09/07/2012 Pravastatin Myalgia 11/04/2015 Simvastatin Myalgia 08/27/2010 Symptoms recurred after stop/restart med. 08/27/2010 Medications ASPIRIN 81 MG TAB, DELAYED RELEASE take 1 tablet (81 mg) by oral route once daily 0 7 Active lisinopril (PRINIVIL; ZESTRIL) 20 mg tabletIndications :Essential hypertension Take 1 tablet by mouth once daily. 90 tablet 3 6 Active hydrochlorothiazi de (HCTZ) 25 mg tabletIndications :Essential hypertension Take 1 tablet by mouth once daily. 90 tablet 3 6 Active allopurinol (ZYLOPRIM) 300 mg tabletIndications :Gouty arthropathy Take 1 tablet by mouth once daily. 90 tablet 3 6 Active nitrofurantoin macrocrystals/mon ohydrate (MACROBID) 100 mg capsuleIndication s:Recurrent UTI (urinary tract infection) Take 1 capsule by mouth 2 times daily. 14 capsule 0 6 Active Active Problems Problem Noted Date Diagnosed Date Vitamin D deficiency 10/31/2014 Screen for colon cancer 10/27/2011 Overview (10/27/2011): Colonoscopy 10/2011 normal repeat in 10 years Inguinal hernia without ment ion of obstruction or gangrene, unilateral or unspecified, (not specified as recurrent) 10/07/2011 Overview (10/07/2011): Right: Asymptomatic. Noted 04/2009. Elevated prostate specific antigen (PSA) 009 Overview (04/29/2009): Recheck in 4 months Routine general medical exam ination at a health care facility 03/20/2008 Overview (09/01/2009): colonoscopy recommended 09/01/2009 Mixed hyperlipidemia 03/15/2007 Gouty [...] Recorded Sex Assigned at Not on file Legal Sex Male 5:24 AM BLOCK ENGRAVER Gender Identity Not on file Sexual Orientation Not on file Occupation Industry Job Start Date Job End Date [place] Not on file Not on file Not on file Obstetrics History Last Filed Vital Signs Vital Sign Reading Time Taken Comments Blood Pressure 152/104 11/21/2015 12:06 PM CDT Pulse 98 11/21/2015 12:04 PM CDT Temperature 36.9 C (98.5 F) 11/04/2015 7:58 AM BLOCK ENGRAVER Respiratory Rate - - Oxygen Saturation 97% 11/21/2015 12: 04 PM CDT Inhaled Oxygen Concentration - - Weight 115.8 kg (255 lb 3.2 oz) 016 12:04 PM CDT Height 177.3 cm (5' 9.8) 11/04/2015 7:58 AM BLOCK ENGRAVER Body Mass Index 36.82 11/04/2015 7:58 AM BLOCK ENGRAVER Plan of Treatment Health Maintenance Due Date Last Done Comments HIV for age 15-65 1973 Hepatitis C screening for ag e 18-79 1976 Pneumococcal series for age 50+ (1 of 1 - PCV) 2008 Zoster (shingles) series for age 50+ (1 of 2) 2008 BMI (ht and wt on same day) for age 18+ 11/03/2016 11/04/2015 Depression screening for age 12+ 11/03/2016 11/04/19 16 Tetanus booster 11/22/2017 11/23/2007, 09/05/1997 Lipids for age 45-75 10/29/2020 10/29/2015, 12/12/2014, 10/23/2014, Additional history exists Colonoscopy through age 75 10/27/2021 10/27/2011, COVID-19 vaccine series (2023- season) 2024 Influenza for age 65+ 05/06/2024 08/27/2010 , 07/25/2009, 07/06/2008, Additional history exists RSV vaccine for adults or (1 - 1-dose 75+ series) 2033 Tdap Completed 11/23/2007 Procedures Procedure Name Priority Date/Time Associated Diagnosis Comments LIPID PANEL W REFLEX MEASURED LDL Routine 10/29/2015 7:10 AM BLOCK ENGRAVER Mixed hyperlipidemia from Last 3 Months or Most Recently Relevant to Health Maintenance Results * (ABNORMAL) LIPID PANEL W REFLEX MEASURED LDL (10/29/2015 7:10 AM BLOCK ENGRAVER) CHOLESTEROL,TOTAL 218(H) 100 - 199 mg/dL 10/29/2015 7:43 AM BLOCK ENGRAVER [facility] TRIGLYCERIDES 346(H) <150 mg/dL 10/29/2015 7:43 AM BLOCK ENGRAVER [facility] HDL CHOLESTEROL 30(L) >40 mg/dL 10/29/2015 7:43 AM BLOCK ENGRAVER [facility] NON-HDL CHOLESTEROL 188(H) <145 mg/dl 10/29/2015 7:43 AM BLOCK ENGRAVER [facility] CHOL/HDL RATIO 7.27(H) <4.50 10/29/2015 7:43 AM BLOCK ENGRAVER [facility] LDL CHOLESTEROL 119 <=130 mg/dL 10/29/2015 7:43 AM BLOCK ENGRAVER [facility] PATIENT STATUS FASTING 10/29/2015 7:43 AM BLOCK ENGRAVER [facility] Blood specimen (specimen) BLOOD SPECIMEN / Unknown Venipuncture / Unknown 10/29/2015 7:10 AM BLOCK ENGRAVER 10/29/2015 7:11 AM BLOCK ENGRAVER Gopi Thao MD CHEMISTRY Final Result [facility] [address] [place] [address], from Last 3 Months or Most Recently Relevant to Health Maintenance Insurance [facility]
--- OUTSIDE RECORDS SUMMARY | 2024-10-08 07:10 | XMS_ITS | Clinical Summary ---
Author Organization [facility] Address [address] [place] [address] Care Team Providers Care Money Position Officer Name Role Phone Unavailable Primary Care Provider Unavailabl e Source Comments You are receiving this document as you are listed as the primary care provider,follow-up provider, or the patient has been referred to you for consultation.This is in compliance with the Medicare andMedicaid EHR Incentive Program,which states Providers who transition their patient to another setting of careor provider of care or refers their patient to another provider of care shouldprovide summary care record for each transition of care or referral. [facility] Allergies Active Allergy Reactions Criticality Noted Date Comments Atorvastatin Myalgias 09/07/2012 Pravastatin Myalgias 11/04/2015 Simvastatin Myalgias 08/27/2010 Symptoms recurred after stop/restart med. 08/27/2010 Medications Medication Sig Dispensed Refills Start Date End Date Status methocarbamol (ROBAXIN) 750 MG tablet Take 1 Tablet (750 mg) by mouth three times a day as needed (muscle spasms). 30 Tablet 05/19/2024 Active methylPREDNISolone (MEDROL 21 TABLET DOSEPACK) 4 MG tablet Follow package directions 21 Tablet 05/19/2024 Active Active Problems No known active problems Social History Tobacco Use Types Packs/Day Years Used Date Smoking Tobacco: Never Assessed Sex and Gender Information Value Date Recorded Sex Assigned at Not on file Gender Identity Not on file Sexual Orientation Not on file Last Filed Vital Signs Vital Sign Reading Time Taken Comments Blood Pressure - - Pulse - - Temperature 37.1 C (98.7 F) 05/19/2024 9:33 AM CDT Respiratory Rate - - Oxygen Saturation - - Inhaled Oxygen Concentration - - Weight 109 kg (240 lb 6.4 oz) 05/19/2024 9:33 AM CDT Height 177.8 cm (5' 10) 05/19/2024 9:33 AM CDT Body Mass Index 34.49 05/19/2024 9:33 AM CDT Plan of Treatment Health Maintenance Due Date Last Done Comments Colon Cancer Screening Plan Due 1960 Diabetes Screening- (based on age and BMI) 1960 Hep C Screening (Preventive Services) 1960 Medicare Annual Wellness Visit 1960 PSA Screening Discussion 1960 Cholesterol 1993 Zoster/Shingles (1 of 2) 2008 Pneumococcal 65+ Yrs (1 - PCV) 2023 COVID-19 Vaccine ( - season) 2024 Influenza (#1) 2024 08/27/2010, 07/07, 07/06/2008, Additional history exists DTaP/Tdap/Td (3 - Tdap) 10/31/2027 10/31/19 18, 11/23/2007, 09/05/1997 RSV (1 - 1-dose 75+ series) 2033 HepA Aged Out No longer eligi ble based on patient's age to complete this topic HepB Aged Out No longer eligi ble based on patient's age to complete this topic Hib Aged Out No longer eligi ble based on patient's age to complete this topic IPV (Polio) Aged Out No longer eligi ble based on patient's age to complete this topic MCV4 Aged Out No longer eligi ble based on patient's age to complete this topic
--- NOTE | 2024-10-08 07:38 | W.PM.H&PU ---
History & Physical Update History & Physical Update H&P Reviewed and patient assessed: No changes noted
[2024-10-08] MEDS: SODIUM CHLORIDE 0.9 % (FLUSH) 10 ML SYRINGE IVF (07:55)
[2024-10-08] MEDS: LACTATED RINGERS 500 ML 500 ML 100 ML IV (07:55)
[2024-10-08] MEDS: MIDAZOLAM HCL 1 MG/ML inj IVP (08:28)
[2024-10-08] MEDS: fentaNYL 100 MCG/2 ML inj IVP (08:28)
[2024-10-08] MEDS: CEFAZOLIN 2 GM in 0.9 % SODIUM CHLORIDE Mini-bag 100 ML IVPB (09:23)
--- NOTE | 2024-10-08 09:39 | SUR.OPER ---
PATIENT QUESTIONS ANSWERED SATISFACTORILY PREOPERATIVELY. PATIENT BROUGHT TO OR #3 PER CART. Patient positioned supine on OR #3 bed. The perioperative team supported right arm bilaterally on arm boards. Final approval of positioning by surgeon.
--- NOTE | 2024-10-08 09:45 | P.NB_ITS ---
Nerve Block Nerve Block Time Seen by Provider: 08:33 Date Seen: 10/08/24 Type of block requested by surgeon for post-operative analgesia: axillary Side: right Time out performed: Yes Verification of patient name: Yes Verification of date of : Yes Site marking: site marked Name of person performing procedure: Shola Continuous monitoring Was continuous monitoring of O2 sat, B/P, automotive brake specialist, recorded every 15 minutes?: Yes Procedure Checklist: sterile prep, needles and gloves Ultrasound guided. Images saved: Yes Medications given in 5ml increments after negative aspiration: Ropivicaine %: 0.5 mL: 10 Needle gauge: 22 and Lidocaine %: 2 mL: 15 Patient tolerated procedure well: Yes Additional comments: Needle noted adjacent to nerve Block Charges Block Charge (with Pro Fee): Brachial Plexus Use of Ultrasound Machine for Block: Yes- US Guidance/pain block
--- NOTE | 2024-10-08 10:21 | PM.ORPRC ---
Procedure Note Date of procedure: 10/08/24 Procedure: PREOPERATIVE DIAGNOSIS: 1. Right ulnar nerve neuropathy; cubital tunnel syndrome 2. Right carpal tunnel syndrome POSTOPERATIVE DIAGNOSIS: 1. Right ulnar nerve neuropathy; cubital tunnel syndrome with unstable ulnar nerve upon elbow flexion 2. Right carpal tunnel syndrome PROCEDURE: 1. Right ulnar nerve decompression and anterior subcutaneous transposition 2. Right open carpal tunnel release SURGEON: Todd Barker MD CHIEF OF INTERNAL MEDICINE: Chi ZAIDI (Of note, use of an surveyor's assistant was critical for this case to aid in patient positioning, tissue retraction, nerve protection, arm positioning, suture management, and closure as well as splint application.) ANESTHESIA: Axillary block plus MAC EBL: Less than 25 mL TOURNIQUET: 39 min at 250 torr IMPLANTS: None COMPLICATIONS: None evident INDICATIONS FOR PROCEDURE: The patient is a pleasant 64-year-old male. They have experienced right upper extremity numbness and tingling involving all digits, both median and ulnar nerve distribution, with some difficulty with fine motor skills. Given the patient's difficulty with use of this extremity as well as failure of nonoperative management, recommendation was made for surgery for nerve decompression. DESCRIPTION OF PROCEDURE: Following a thorough discussion of the risks, benefits and alternatives, consent was obtained and the right medial elbow and hand/palm were marked. The patient was brought to the operating room, placed supine on the operating table. Induction of anesthesia was undertaken. Appropriate time out was performed identifying proper patient, site, and procedure. 2 g IV Ancef was administered within 1 hr incision preoperatively. The operative upper extremity was prepped and draped in the appropriate sterile fashion using ChloraPrep prep. The limb was exsanguinated and the tourniquet inflated. We began with the open carpal tunnel release as follows: an incision was made in line with the radial border of the ring finger beginning 1 cm distal to the distal wrist crease and progressing for another 2.5cm distal. Caution was taken to stay proximal to Osorio's cardinal line. Sharp incision through the skin, subcutaneous tissue, and palmar fascia was performed. The thenar musculature was bluntly elevated off the transverse carpal ligament. The ligament was directly visualized, and divided sharply with a 15 blade. This was released from its most proximal to the most distal extent. Metzenbaum scissor was also utilized to release the fascia extension proximally. We confirmed complete release of the transverse carpal ligament. We then turned our attention to the ulnar nerve decompression at the cubital tunnel as follows: a longitudinal incision was made along the medial elbow extending proximal and distal approximately 3-5 cm in either direction. Sharp incision through the skin and blunt dissection through the subcutaneous tissue allowed protection of crossing neurologic structures. Proximally, blunt dissection continued to the depth of the ulnar nerve itself. The nerve was released from its surrounding tissues beginning proximally and moving toward the distal extent. This included ligament of [place], medial intermuscular septum, cubital tunnel, FCU fascial sling, etc. The vena comitantes was maintained with the nerve and caution was taken particularly around the motor branches of the ulnar nerve. After releasing the nerve circumferentially, we then evaluated the need for transposition based on any subluxation / dislocation during elbow flexion. Indeed the nerve showed itself to be unstable with elbow flexion beyond 90? prompting subcutaneous anterior transposition of the nerve. As such, a fascial sling was created at the flexor/pronator mass origin off the medial humeral epicodyle. Additionally, the medial intermuscular septum was visualized and released for approximately 4 cm proximal to the medial humeral epicondyle so the nerve would not rub on/be irritated by this rigid fiber structure. The nerve was then transposed anteriorly, the fascial sling loosely sutured to the subcutaneous layer directly overlying it, and a [place] could easily be positioned alongside the nerve deep to the fascial sling ensuring that there is not excessive tension on the nerve. The tourniquet was deflated, hemostasis achieved, and a thorough irrigation performed. Closure was performed with 2-O Vicryl and 3-0 Monocryl for the subcutaneous and subcuticular closure, respectively. The carpal tunnel was then closed with 4-0 nylon in interrupted mattress fashion. Dressings were applied. Posterior long-arm splint was applied. PLAN: 1. Encourage elevation of the operative extremity. 2. Range of motion of the fingers and hand/wrist as tolerated. 3. Ibuprofen/acetaminophen and/or oxycodone as needed for pain control. 4. Follow up with PA visit or nurse visit in 2 days for splint removal and then at the 12-16 day point for wound check and suture removal.
[2024-10-08] MEDS: BACITRACIN OINTMENT BULK TUBE 1 APPLIC TOPICAL (10:24)
--- NOTE | 2024-10-08 10:36 | P.ANES_ITS ---
Anesthesia Charges Start Date/Time Anesthesia Start Date: 10/08/24 Anesthesia Start Time: 09:13 Stop Date/Time Anesthesia Stop Date: 10/08/24 Anesthesia Stop Time: 10:49 Coding CPT Codes CPT Codes: ANESTH LOWER ARM SURGERY - 89888 ([id number]) QK - DIRECTOR OF COLLECTIONS AND ARCHIVES 2-4 CNCRNT ANES PROC, QX - LINE CONSTRUCTION SUPERVISOR SVC W/ MD MED DIRECTION, P2 - PATIENT W/MILD SYST DISEASE
--- NOTE | 2024-10-08 10:36 | W.ANESCHARGE ---
Anesthesia Charges Start Date/Time Anesthesia Start Date: 10/08/24 Anesthesia Start Time: 09:13 Stop Date/Time Anesthesia Stop Date: 10/08/24 Anesthesia Stop Time: 10:49 Coding CPT Codes CPT Codes: ANESTH LOWER ARM SURGERY - 50144 ([id number]) QK - SISAL PICKER 2-4 CNCRNT ANES PROC, QX - COMPLIANCE VICE PRESIDENT SVC W/ MD MED DIRECTION, P2 - PATIENT W/MILD SYST DISEASE
--- NOTE | 2024-10-08 10:51 | P.ANES_ITS ---
Anesthesia Charges Start Date/Time Anesthesia Start Date: 10/08/24 Anesthesia Start Time: 09:13 Stop Date/Time Anesthesia Stop Date: 10/08/24 Anesthesia Stop Time: 10:49 Coding CPT Codes CPT Codes: ANESTH LOWER ARM SURGERY - 05208 ([id number]) QK - AGRICULTURAL PRODUCE PACKER 2-4 CNCRNT ANES PROC, QX - MEDICAL TERMINOLOGIST SVC W/ MD MED DIRECTION, P2 - PATIENT W/MILD SYST DISEASE
--- NOTE | 2024-10-08 10:51 | W.ANESCHARGE ---
Anesthesia Charges Start Date/Time Anesthesia Start Date: 10/08/24 Anesthesia Start Time: 09:13 Stop Date/Time Anesthesia Stop Date: 10/08/24 Anesthesia Stop Time: 10:49 Coding CPT Codes CPT Codes: ANESTH LOWER ARM SURGERY - 82504 ([id number]) QK - SIZING SPRAYER 2-4 CNCRNT ANES PROC, QX - DIRECTOR OF THE BIOPHYSICS FACILITY SVC W/ MD MED DIRECTION, P2 - PATIENT W/MILD SYST DISEASE
--- NOTE | 2024-10-08 11:19 | SUR.PREOP ---
TIME?OUT:?825 PT/Talia Patino RN/Dr. Shola MDA?VERIFICATION?OF?SURGICAL?SITE right arm,?PROCEDURE,?AND?CONSENT OBTAINED?PRIOR?TO?INVASIVE?PROCEDURE.
== END 2024-10-08 11:45 | disposition home or self-care (01) ==
PROVIDERS: PCP Family Medicine; Visit Provider Orthopaedic Surgery Sports Medicine
PROC: (CPT 64721; principal; 2024-10-08 09:00)
DX: G56.01 Carpal tunnel syndrome, right upper limb (principal); G56.21 Lesion of ulnar nerve, right upper limb; G89.18 Other acute postprocedural pain
CPT/HCPCS: 64721; 64718; 01810; 76942; J0690; J2250; J2371; J2405; J2704; J3010; J3490; J7120

== ENCOUNTER 2024-11-22 09:52 | Outpatient (CLI) | payer MEDICARE, BC, SELFPAY | END 2024-11-22 09:53 | disposition home or self-care (01) | LOC: NFLDREF 09:53 | PROVIDERS: PCP Family Medicine; Visit Provider Family Medicine | DX: E11.9 Type 2 diabetes mellitus without complications (principal); Z01.818 Encounter for other preprocedural examination | CPT/HCPCS: 80048 ==

== ENCOUNTER 2025-01-24 09:01 | Outpatient (CLI) | payer MEDICARE, BC, SELFPAY | END 2025-01-24 09:02 | disposition home or self-care (01) | LOC: NFLDREF 09:01 | PROVIDERS: PCP Family Medicine; Visit Provider Family Medicine | DX: E11.9 Type 2 diabetes mellitus without complications (principal) | CPT/HCPCS: 80048 ==

== ENCOUNTER 2025-02-04 06:02 | Day surgery (SDC) | payer MEDICARE, BC, SELFPAY ==
[2025-02-04] VITALS (20 sets, daily range): BP systolic 93–134; BP diastolic 57–99; PULSE 60–85; RESP 16; TEMP 36.3–36.8; O2SAT 92–97; BMI 32.5
[2025-02-04] MEDS: fentaNYL 100 MCG/2 ML inj IVP (05:44)
--- NOTE | 2025-02-04 06:44 | W.PM.H&PU ---
History & Physical Update History & Physical Update H&P Reviewed and patient assessed: No changes noted
[2025-02-04] MEDS: SODIUM CHLORIDE 0.9 % (FLUSH) 10 ML SYRINGE IVF (07:14)
[2025-02-04] MEDS: LACTATED RINGERS 1000 ML 1,000 ML 100 ML IV ×2 (07:14→09:42)
[2025-02-04] MEDS: ACETAMINOPHEN 500 MG TABLET 1000 MG PO (07:14)
[2025-02-04] MEDS: OXYCODONE (CR) 10 MG TAB.ER.12H PO (07:14)
[2025-02-04] MEDS: MIDAZOLAM HCL 1 MG/ML inj IVP (07:18)
--- NOTE | 2025-02-04 07:26 | P.ANES_ITS ---
Anesthesia Charges Start Date/Time Anesthesia Start Date: 02/04/25 Anesthesia Start Time: 07:28 Stop Date/Time Anesthesia Stop Date: 02/04/25 Anesthesia Stop Time: 09:33 Coding CPT Codes CPT Codes: ANESTH HIP ARTHROPLASTY - 35115 ([id number]) P2 - PATIENT W/MILD SYST DISEASE, QK - FILER AND SANDER 2-4 CNCRNT ANES PROC, QX - METAL SORTER SVC W/ MD MED DIRECTION
--- NOTE | 2025-02-04 07:26 | W.PM.NB ---
Nerve Block Nerve Block Time Seen by Provider: 07:20 Date Seen: 02/04/25 Type of block requested by surgeon for post-operative analgesia: DANY/LFCN Side: left Time out performed: Yes Verification of patient name: Yes Verification of date of : Yes Site marking: site marked Name of person performing procedure: Shola Continuous monitoring Was continuous monitoring of O2 sat, B/P, vehicle monitor technician, recorded every 15 minutes?: Yes Procedure Checklist: sterile prep, needles and gloves Ultrasound guided. Images saved: Yes Medications given in 5ml increments after negative aspiration: Ropivicaine %: 0.5 mL: 30 Needle gauge: 20 Precedex (mcg): 25 Patient tolerated procedure well: Yes Additional comments: Needle noted below psoas tendon needle noted adjacent to LFCN Block Charges Block Charge (with Pro Fee): Other Periph Nerve Block Use of Ultrasound Machine for Block: Yes- US Guidance/pain block
--- NOTE | 2025-02-04 07:26 | W.ANESCHARGE ---
Anesthesia Charges Start Date/Time Anesthesia Start Date: 02/04/25 Anesthesia Start Time: 07:28 Stop Date/Time Anesthesia Stop Date: 02/04/25 Anesthesia Stop Time: 09:33 Coding CPT Codes CPT Codes: ANESTH HIP ARTHROPLASTY - 23278 ([id number]) P2 - PATIENT W/MILD SYST DISEASE, QK - PLANT CONTROL OPERATOR 2-4 CNCRNT ANES PROC, QX - CORN POPPER SVC W/ MD MED DIRECTION
--- NOTE | 2025-02-04 07:30 | CRLHL7_ITS ---
For Patients: As a result of the Cures Act, medical imaging exams and procedure reports are released immediately into your electronic medical record. You may view this report before your referring provider. If you have questions, please contact your health care provider. Fluoroscopy was provided for the Orthopedic surgery service during left total hip arthroplasty. Three spot films acquired. Forty seconds of fluoroscopy time utilized. The spot films demonstrate steps of placement of a left total hip arthroplasty. Dictated by Sushant Valenzuela MD @ 02/04/2025 8:19:33 PM (Electronically Signed)
--- NOTE | 2025-02-04 07:34 | SUR.PREOP ---
TIME?OUT:?0718 PT/RN/MDA?VERIFICATION?OF?SURGICAL?SITE,?PROCEDURE,?AND?CONSENT OBTAINED?PRIOR?TO?INVASIVE?PROCEDURE.
[2025-02-04] MEDS: CEFAZOLIN 2 GM in 0.9 % SODIUM CHLORIDE Mini-bag 100 ML IVPB (07:38)
[2025-02-04] MEDS: TRANEXAMIC ACID 100 MG/ML INJ 1000 MG IV (07:39)
--- NOTE | 2025-02-04 09:02 | PM.ORPRC ---
Procedure Note Date of procedure: 02/04/25 Procedure: PREOPERATIVE DIAGNOSIS: 1. Left hip osteoarthritis, severe, primary POSTOPERATIVE DIAGNOSIS: 1. Left hip osteoarthritis, severe, primary PROCEDURE: 1. Left total hip arthroplasty-anterior approach 2. 86823 - intraoperative fluoroscopy up to 1 hour. SURGEON: Todd Barker MD. FISH AND GAME CLUB MANAGER: Mitul Hooks PA-C; DEJUAN Leigh - Of note, a skilled medical administrative assistant was critical for this case to aid in patient positioning, tissue retraction, limb manipulation/positioning, dislocation/relocation, patient safety, and closure. ANESTHESIA: General endotracheal anesthetic EBL: 300 mL IMPLANTS: DePuy J&J uncemented total hip [place] cup size 54, hole eliminator, +4 neutral liner Actis stem, high offset, size 5 +1.5 mm ceramic 36 mm head. COMPLICATIONS: None evident INDICATIONS: The patient is a pleasant 64-year-old male who has experienced severe left hip pain and difficulty bearing weight. Workup included x-rays which revealed severe osteoarthrosis in the hip. Given the deformity, the dysfunction, and the pain, as well as the failure of nonoperative management, recommendation was made for surgery. FINDINGS: Full-thickness chondral loss diffusely throughout the femoral head as well as acetabulum. Osteophytes around the femoral head/neck junction. Moderate effusion upon entering the joint. DESCRIPTION OF PROCEDURE: Following a thorough discussion of risks, benefits, and alternatives consent was obtained and the left hip was marked. The patient was brought to the operating room and placed supine on the operating table. Induction of anesthesia was undertaken. 2 g IV Ancef and 1 g tranexamic acid was administered within 1 hr of incision preoperatively. Proper time-out was performed identifying proper patient, site, procedure. The operative extremity was prepped and draped in the appropriate sterile fashion using ChloraPrep after the patient was positioned on the [place] table with head in neutral alignment and all bony prominences well padded. C-arm fluoroscopic imaging was utilized to confirm proper pelvis rotation and position, and to get true AP films of both the contralateral left, and the affected left hip. This is for comparison. A longitudinal incision was made starting approximately 1 cm distal to the ASIS, and 3-4 cm lateral. The incision was extended distally aiming toward the lateral border the patella. Sharp incision through skin and bovie cautery through the subcutaneous tissue allowed identification of the TFL fascia. This was sharply divided, and the fascia bluntly released from the muscle fibers as we dissected medial. Upon coming to the medial border, we were able to retract the TFL laterally, and penetrated the deeper fascia and identify the crossing circumflex vessels. These were ligated/cauterized. The rectus was elevated from the capsule, and retractors placed laterally and medially along the femoral neck to help with visualization of the capsule. We then performed an inverted T capsulotomy. The capsule was tagged for later repair. Retractors were placed inside the capsule. The femoral neck was visualized after releasing medially down to the lesser trochanter, along the saddle laterally, and up onto the acetabulum. The femoral neck cut was made in line with our preoperative templating. The head was removed in a single piece, and sized. We turned our attention to acetabular preparation. Initially, the labrum was resected from around the perimeter, the pulvinar was excised, allowing us to visualize the false wall. We started the reaming with a 43 mm reamer. This was medialized down to the true wall. We then enlarged our reamers sequentially up to one size less than the selected cup size. We trialed at the same size and found it to have an excellent fit. The selected cup was then opened, inserted, and impacted in line with the goal of 40-45? of abduction, and 20-25? of anteversion. This was confirmed on C-arm fluoroscopic imaging to be in the appropriate/goal position. Once the cup was placed we placed a hole eliminator and a liner consistent with preop planning. Attention was turned to the femoral preparation. The limb was extended, externally rotated, and adducted. The posteromedial capsule was released, as retractors were placed allowing excellent access to the proximal femur. Initially a box feeder was followed by canal finder followed by various broaches. We broached sequentially up to size noted above, found it to have excellent rotational control, and trialing various heads and necks, revealed that appropriate neck offset, and the above noted head size provided the greatest stability, and adventism of length, and offset. C-arm fluoroscopic imaging confirmed position of the stem, as well as leg lengths, which were compared with the pre procedure all fluoroscopic images. Trial implants were removed, the real femoral stem inserted, as was the ceramic head. After reducing, the leg was placed through range of motion and stability was confirmed anterior, posterior, and lateral. A 3 min Betadine soak was then performed, and thorough irrigation with normal saline followed. Closure of the capsule was performed with #1 PDS. Bleeding was confirmed to be controlled at this stage, and the TFL fascia was closed with #0 strata fix. Subcutaneous, and subcuticular closure was performed with 2-0 Vicryl and 4-0 Monocryl, respectively. Dressings were applied, and the patient was awoken from anesthesia and transferred the PACU in stable condition. A skilled medical administrative assistant was critical for this case to aid in patient positioning, tissue retraction, proximal femur exposure, limb manipulation/positioning, dislocation/relocation, patient safety, and closure. PLAN: 1. Weight bear as tolerated operative extremity. 2. 23 hr perioperative antibiotics. 3. Ice. 4. PT/OT consults for ambulation assistance/mobility education. 5. Social work consult for discharge planning. 6. DVT prophylaxis with at SCDs and Xarelto x5 days followed by aspirin for a total of 1 month..
--- NOTE | 2025-02-04 09:32 | P.ANES_ITS ---
Anesthesia Charges Start Date/Time Anesthesia Start Date: 02/04/25 Anesthesia Start Time: 07:28 Stop Date/Time Anesthesia Stop Date: 02/04/25 Anesthesia Stop Time: 09:33 Coding CPT Codes CPT Codes: ANESTH HIP ARTHROPLASTY - 57788 ([id number]) P2 - PATIENT W/MILD SYST DISEASE, QK - VOCATIONAL HORTICULTURE INSTRUCTOR 2-4 CNCRNT ANES PROC, QX - EDGING MACHINE OPERATOR SVC W/ MD MED DIRECTION
--- NOTE | 2025-02-04 09:32 | W.ANESCHARGE ---
Anesthesia Charges Start Date/Time Anesthesia Start Date: 02/04/25 Anesthesia Start Time: 07:28 Stop Date/Time Anesthesia Stop Date: 02/04/25 Anesthesia Stop Time: 09:33 Coding CPT Codes CPT Codes: ANESTH HIP ARTHROPLASTY - 49357 ([id number]) P2 - PATIENT W/MILD SYST DISEASE, QK - MANAGER CLIENT 2-4 CNCRNT ANES PROC, QX - WHEEL MOLDER SVC W/ MD MED DIRECTION
--- NOTE | 2025-02-04 09:35 | CRLHL7_ITS ---
For Patients: As a result of the Cures Act, medical imaging exams and procedure reports are released immediately into your electronic medical record. You may view this report before your referring provider. If you have questions, please contact your health care provider. INDICATION: Total left hip replacement. TECHNIQUE: Pelvis one view. Left hip two views. COMPARISON: 11/20/2024. FINDINGS: Left hip arthroplasty appears appropriately positioned. Soft tissue gas consistent with recent surgery. Right hip arthroplasty appears intact. No acute osseous abnormality or other significant interval change. IMPRESSION: Expected changes status post left hip arthroplasty. Dictated by Pepito Cazares MD @ 02/05/2025 12:06:43 PM (Electronically Signed)
[2025-02-04] MEDS: IBUPROFEN 200 MG TABLET 400 MG PO (10:24)
[2025-02-04] MEDS: hydrOXYzine pamoate 25 MG CAPSULE PO (10:24)
[2025-02-04] MEDS: LACTATED RINGERS 1000 ML 1,000 ML 30 ML IV (10:54)
[2025-02-04] MEDS: ACETAMINOPHEN 325 MG TABLET PO (12:15)
[2025-02-04] MEDS: METOCLOPRAMIDE HCL 5 MG/ML INJ 10 MG IVP (13:08)
--- NOTE | 2025-02-04 14:06 | SUR.PHASEII ---
Patient passed OT. Vital signs stable, discharged home @ 1400.
== END 2025-02-04 14:00 | disposition home or self-care (01) ==
LOC: OR 06:03
PROVIDERS: PCP Family Medicine; Visit Provider Orthopaedic Surgery Sports Medicine
PROC: (CPT 27130; principal; 2025-02-04 07:30)
DX: M16.12 Unilateral primary osteoarthritis, left hip (principal); G89.18 Other acute postprocedural pain; E11.9 Type 2 diabetes mellitus without complications; Z79.84 Long term (current) use of oral hypoglycemic drugs; Z79.82 Long term (current) use of aspirin; G47.33 Obstructive sleep apnea (adult) (pediatric); Z99.89 Dependence on other enabling machines and devices; E78.5 Hyperlipidemia, unspecified; I10 Essential (primary) hypertension
CPT/HCPCS: 27130; 01214; 36415; 64450; 73501; 76000; 76942; 82962; 86850; 86900; 86901; 97110; 97116; 97161; 97165; 97530; 97535; A9270; C1776; J0330; J0690; J1100; J1171; J2250; J2371; J2405; J2704; J2765; J2795; J3010; J3490; J7120

== ENCOUNTER 2025-04-28 10:16 | Emergency (ER) | payer MEDICARE, BC, SELFPAY ==
[2025-04-28] VITALS (29 sets, daily range): BP systolic 81–135; BP diastolic 50–84; PULSE 87–108; RESP 16–18; TEMP 36.6; O2SAT 91–100; BMI 34.1
--- OUTSIDE RECORDS SUMMARY | 2025-04-28 10:19 | XMS_ITS | Clinical Summary ---
Author Organization [facility] Address [address] [place] [address] Care Team Providers Care Asset Protection Representative Name Role Phone Unavailable Primary Care Provider [...] for each transition of care or referral. [email or web address] Allergies Active Allergy Reactions Criticality Noted Date Comments Atorvastatin Myalgias 09/07/2012 Pravastatin Myalgias 11/04/2015 Simvastatin Myalgias 08/27/2010 Symptoms recurred after stop/restart med. 08/27/2010 Medications metFORMIN (GLUCOPHAGE) 500 MG tablet Take 1 Tablet (500 mg) by mouth two times a day with meals. Active lisinopril (ZESTRIL) 2.5 MG tablet Take 1 Tablet (2.5 mg) by mouth daily. Active hydroCHLOROthia zide (ORETIC) 12.5 MG tablet Take 1 Tablet (12.5 mg) by mouth daily. Active diclofenac (VOLTAREN) 75 MG enteric coated tablet Take 1 Tablet (75 mg) by mouth two times daily as needed (Pain). 60 Tablet 11/26/2024 Active allopurinol (ZYLOPRIM) 300 MG tablet Take 1 Tablet (300 mg) by mouth daily. 09/18/2024 Active amoxicillin (AMOXIL) 500 MG capsule Take 4 Capsules (2,000 mg) by mouth as needed. Prior to dental work 09/18/2024 Active tamsulosin 0.4 MG CAPS capsule Take 1 Capsule (0.4 mg) by mouth daily. Active Active Problems Problem Noted Date Diagnosed Date Primary osteoarthritis of left hip 12/05/2024 History of right hip replacement 12/05/2024 Social History Tobacco Use Types Packs/Day Years Used Date Smoking Tobacco: Never Passive Smoke Exposure: Never Tobacco Cessation:Counseling Given: Not Answered Alcohol Use Standard Drinks/Week Comments Not Currently 0 (1 standard drink = 0.6 oz pur e alcohol) Sex and Gender Information Value Date Recorded Sex Assigned at Not on file Legal Sex Male 8:52 AM CDT Gender Identity Not on file Sexual Orientation Not on file Last Filed Vital Signs Vital Sign Reading Time Taken Comments Blood Pressure - - Pulse - - Temperature 36.6 C (97.9 F) 11/26/2024 10:48 AM CDT Respiratory Rate - - Oxygen Saturation - - Inhaled Oxygen Concentration - - Weight 109.3 kg (241 lb) 12/05/2024 10:44 AM CDT Height 177.8 cm (5' 10) 12/05/2024 10:44 AM CDT Body Mass Index 34.58 12/05/2024 10:44 AM CDT Plan of Treatment Health Maintenance Due Date Last Done Comments Colon Cancer Screening Plan Due 1958 Diabetes: Albumin/Creatinine Ratio, Urine 1958 Diabetes: Creatinine 1958 Diabetes: Eye Exam 1958 Diabetes: Foot Exam 1958 Diabetes: HGBA1C 1958 Diabetes: Lipid Panel 1958 Hep B Immunization Discussion 1958 Hep C Screening (Preventive Services) 1960 Medicare Annual Wellness Visit 1960 PSA Screening Discussion 1958 Pneumococcal Vaccine 50+ Yrs (1 of 2 - PCV) 1977 Zoster/Shingles Vaccine (1 o f 2) 2008 COVID-19 Vaccine (2023-2 5 season) 2024 Influenza Vaccine (#1) 2025 0, 08/02/2007 DTaP/Tdap/Td Vaccine (3 - Tdap) 10/31/2027 10/31/2017, 11/23/2007 RSV Vaccine (1 - 1-dose 75+ series) 2033 HepA Vaccine Aged Out No longer eligi ble based on patient's age to complete this topic HepB Vaccine Aged Out No longer eligi ble based on patient's age to complete this topic Hib Vaccine Aged Out No longer eligi ble based on patient's age to complete this topic IPV (Polio) Vaccine Aged Out No longe r eligible based on patient's age to complete this topic MCV4 Vaccine Aged Out No longer eligi ble based on patient's age to complete this topic Meningococcal B Vaccine Aged Out No l onger eligible based on patient's age to complete this topic Insurance MEDICARE MANAGED CARE [facility] [place] [phone]
--- OUTSIDE RECORDS SUMMARY | 2025-04-28 10:19 | XMS_ITS | Clinical Summary ---
Author Organization [email or web address] Address [address] [place] [id number] Care Team Providers Care Automobile Accessories Salesperson Name Role Phone Unavailable Primary Care Provider [...] Diagnosed Date Resolved Date 04/29/2009 09/01/2009 Immunizations Immunization Administration Dates Next Due Influenza, IIV3 (Age [...] on file Legal Sex Male 5:24 AM DISEASE CASE MANAGER Gender Identity Not on file Sexual Orientation Not on file Occupation Industry Job Start Date Job End Date [place] Not on file Not on file Not on file Obstetrics History Last Filed Vital Signs Vital Sign Reading Time Taken Comments Blood Pressure 152/104 11/21/2015 12:06 PM CDT Pulse 98 11/21/2015 12:04 PM CDT Temperature 36.9 C (98.5 F) 11/04/2015 7:58 AM DISEASE CASE MANAGER Respiratory Rate - - Oxygen Saturation 97% 11/21/2015 12: 04 PM CDT Inhaled Oxygen Concentration - - Weight 115.8 kg (255 lb 3.2 oz) 016 12:04 PM CDT Height 177.3 cm (5' 9.8) 11/04/2015 7:58 AM DISEASE CASE MANAGER Body Mass Index 36.82 11/04/2015 7:58 AM DISEASE CASE MANAGER Plan of Treatment Health Maintenance Due Date Last Done Comments Hepatitis C screening for age 18-79 1976 Pneumococcal series for age 50+ [...] age 75 10/27/2021 10/27/2011, COVID-19 vaccine series ( - 2023- season) 2024 Influenza Vaccine (#1) 2025 0, 07/25/2009, 07/06/2008, Additional history exists RSV vaccine for adults or (1 - 1-dose 75+ series) 2033 Hepatitis B series for 19+ Aged Out N o longer eligible based on patient's age to complete this topic Procedures Procedure Name Priority Date/Time Associated Diagnosis Comments LIPID PANEL W REFLEX MEASURED LDL Routine 10/29/2015 7:10 AM DISEASE CASE MANAGER Mixed hyperlipidemia from Last 3 Months or Most Recently Relevant to Health Maintenance Results * (ABNORMAL) LIPID PANEL W REFLEX MEASURED LDL (10/29/2015 7:10 AM DISEASE CASE MANAGER) CHOLESTEROL,TOTAL 218(H) 100 - 199 mg/dL 10/29/2015 7:43 AM DISEASE CASE MANAGER [facility] TRIGLYCERIDES 346(H) <150 mg/dL 10/29/2015 7:43 AM DISEASE CASE MANAGER [facility] HDL CHOLESTEROL 30(L) >40 mg/dL 10/29/2015 7:43 AM DISEASE CASE MANAGER [facility] NON-HDL CHOLESTEROL 188(H) <145 mg/dl 10/29/2015 7:43 AM DISEASE CASE MANAGER [facility] CHOL/HDL RATIO 7.27(H) <4.50 10/29/2015 7:43 AM DISEASE CASE MANAGER [facility] LDL CHOLESTEROL 119 <=130 mg/dL 10/29/2015 7:43 AM DISEASE CASE MANAGER [facility] PATIENT STATUS FASTING 10/29/2015 7:43 AM DISEASE CASE MANAGER [facility] Blood specimen (specimen) BLOOD SPECIMEN / Unknown Venipuncture / Unknown 10/29/2015 7:10 AM DISEASE CASE MANAGER 10/29/2015 7:11 AM DISEASE CASE MANAGER Gopi Thao MD CHEMISTRY Final Result [facility] [address] [place] [address], [place] [phone] from Last 3 Months or Most Recently Relevant to Health Maintenance Insurance [facility]
--- NOTE | 2025-04-28 10:28 | CRLHL7_ITS ---
For Patients: As a result of the 21st Century Cures Act, medical imaging exams and procedure reports are released immediately into your electronic medical record. You may view this report before your referring provider. If you have questions, please contact your health care provider. INDICATION: Hematuria. Fall. Trauma to groin. TECHNIQUE: CT pelvis acquired with 100 cc Omnipaque 350 IV contrast. COMPARISON: None. FINDINGS: Urinary bladder is distended. Is partially obscured by streak artifact from bilateral hip arthroplasties. Metal reduction series were submitted only partially spans the urinary bladder. There is evidence of a heterogeneous enlarged prostate with mass effect on the posterior bladder wall. Mild indeterminate urinary bladder wall thickening is seen. No significant inflammatory fat stranding is seen. Indeterminate rectal wall thickening, not well evaluated on CT. The remainder of the visualized bowel is unremarkable. A fat containing umbilical hernia is noted measuring approximately 3.9 x 2.1 centimeters. Some soft tissue infiltration of the fat could represent mild inflammation. Small fat containing inguinal hernias are noted. No ascites. No organized drainable fluid collection. A 10 x 18 millimeter left iliac lymph node is seen (series 2, image 32). There are smaller lymph nodes noted. No inguinal lymphadenopathy. No subcutaneous hematoma. Minimal stranding within the subcutaneous fat of the anterior abdomen, likely chronic inflammation. Bone windows were not submitted. This limits evaluation of the bones. Bilateral hip arthroplasties are again noted. There is heterotopic ossification noted about the hips with no definite acute fracture. IMPRESSION: 1. The pelvis is obscured by bilateral hip arthroplasties. 2. Distended urinary bladder with mild thickening. Obscured enlarged prostate with mass effect on the posterior bladder wall. Recommend correlation with urinalysis, urine cytology and PSA. Follow-up cystoscopy may be performed for further evaluation if clinically indicated. 3. Small fat containing umbilical hernia. Mild infiltration of the hernia fat could represent inflammation. Recommend correlation with physical examination. 4. Borderline dilated left pelvic lymph node with otherwise no lymphadenopathy. Recommend close attention on follow-up. Please note that all CT scans at this facility use dose modulation, iterative reconstruction, and/or weight-based dosing when appropriate to reduce radiation dose to as low as reasonably achievable. Dictated by Virgil Good MD @ 04/28/2025 11:22:15 AM (Electronically Signed)
--- NOTE | 2025-04-28 10:29 | ED.GENADULT ---
HPI - General Adult General Chief complaint: Urogenital Problems, Male Stated complaint: bleeding from penis Time Seen by Provider: 04/28/25 10:20 Source: patient Mode of arrival: ambulatory Limitations: no limitations History of Present Illness HPI narrative: 64-year-old male presenting today with bleeding from his penis. Patient states he woke up this morning noticed that there was blood coming out of his penis. This comes at any time, not associated with having to urinate. He denies any pain. He denies inserting anything into the penis. He states that yesterday he fell on a piece of machinery right into the groin area. Did really bother him last night. He is not having pain in the area today. He denies any swelling of the testicles or penis. He denies any abdominal pain. He denies any dizziness, diaphoresis or shortness of breath. This has never happened before. Patient is not on any blood thinners, does take a daily baby aspirin. Related Data Home Medications ?Medication ?Instructions ?Recorded ?Confirmed aspirin 81 mg tablet,delayed 81 mg PO QDAY 11/23/22 03/22/25 release Held on 02/04/25. Instructions: Resume on 03/04/25. cholecalciferol (vitamin D3) 25 25 mcg PO DAILY 11/23/22 03/22/25 mcg (1,000 unit) tablet flaxseed oil 1,000 mg capsule 2,600 mg PO QDAY 11/23/22 03/22/25 glucosamine HCl 1,500 mg tablet 1,500 mg PO BID 11/23/22 03/22/25 magnesium 200 mg tablet 200 mg PO QDAY 11/23/22 03/22/25 berberine chloride 500 mg capsule 500 mg PO .QD 01/24/25 03/22/25 diclofenac sodium 75 mg 75 mg PO BID PRN pain 01/24/25 03/22/25 tablet,delayed release Held on 02/04/25. Instructions: Resume on 02/25/25. Previous Rx's ?Medication ?Instructions ?Recorded allopurinol 300 mg tablet 300 mg PO QDAY #90 tabs 09/18/24 amoxicillin 500 mg capsule 2,000 mg (4 x 500 mg) PO ONCE #12 09/18/24 Held on 02/04/25. caps Instructions: Resume on 02/25/25. hydrochlorothiazide 25 mg tablet 25 mg PO QDAY #90 tabs 09/18/24 lisinopril 20 mg tablet 20 mg PO QDAY #90 tabs 09/18/24 tamsulosin 0.4 mg capsule 0.8 mg (2 x 0.4 mg) PO QDAY #180 09/18/24 caps hydrocortisone 2.5 % topical cream 1 applic topical BID PRN rash #30 10/11/24 grams Blood Glucose Meter #1 ea 11/23/24 Diabetic Test Strips #100 ea 11/23/24 lancets 28 gauge (CareTouch Safety #100 ea 11/23/24 Lancets) metformin 500 mg tablet 500 mg PO BID #180 tabs 01/24/25 Allergies Allergy/AdvReac Type Severity Reaction Status Date / Time [id number]-[id number]-[id number] Reductase AdvReac Intermediate Muscle Pain Verified 04/28/25 10:56 Inhibitor cotton roll Allergy Intermediate Rash Uncoded 04/28/25 10:56 Review of Systems Status of ROS: Reports: 10 or more systems reviewed and unremarkable except as noted in History and below PFSH PFSH Medical History Type 2 diabetes mellitus ?E11.9 - Type 2 diabetes mellitus without complications (ICD-10) Obstructive sleep apnea treated with continuous positive airway pressure (CPAP) ?G47.33 - Obstructive sleep apnea (adult) (pediatric) (ICD-10) ?Z99.89 - Dependence on other enabling machines and devices (ICD-10) Hypertension ?I10 - Essential (primary) hypertension (ICD-10) Hyperlipidemia ?E78.5 - Hyperlipidemia, unspecified (ICD-10) High prostate specific antigen (PSA) ?R97.20 - Elevated prostate specific antigen [PSA] (ICD-10) Gout ?M10.9 - Gout, unspecified (ICD-10) Benign prostatic hyperplasia ?N40.0 - Benign prostatic hyperplasia without lower urinary tract symptoms (ICD-10) Health care directive on file ?Z78.9 - Other specified health status (ICD-10) Surgical History History of total left hip arthroplasty (02/04/25) ?Z96.642 - Presence of left artificial hip joint (ICD-10) S/P cubital tunnel release (10/08/24) ?Z98.890 - Other specified postprocedural states (ICD-10) History of carpal tunnel surgery of right wrist (10/08/24) ?Z98.890 - Other specified postprocedural states (ICD-10) History of total right hip replacement (09/21/17) ?Z96.641 - Presence of right artificial hip joint (ICD-10) Status post trigger finger release (04/15/21) ?Z98.890 - Other specified postprocedural states (ICD-10) History of carpal tunnel surgery of left wrist (04/15/21) ?Z98.890 - Other specified postprocedural states (ICD-10) History of cataract extraction with lens replacement 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) ?Z96.651 - Presence of right artificial knee joint (ICD-10) History of hernia repair ?Z98.890 - Other specified postprocedural states (ICD-10) ?Z87.19 - Personal history of other diseases of the digestive system (ICD-10) History of arthroscopic knee surgery ?Z98.890 - Other specified postprocedural states (ICD-10) Social History What is your current living situation?: I presently have a place to live Problems where you live: no known problems In the past 12 months, utilities in danger of being shut off: no In past 12 months, lack of transportation kept you from medical appts, meetings, work, or getting things needed for daily living: no In the past 12 mos, have been you worried that your food would run out before you had money to buy more?: never true In the past 12 mos, the food you bought just didn't last and you didn't have money to buy more?: never true Smoking Status: Never smoker Do you use any of these nicotine containing products: None How often do you have a drink containing alcohol: never How often do you have six or more drinks on one occasion: Never AUDIT-C Alcohol total score: 0 Non-prescribed substance use: denies use Caffeine: Yes (Mt. ledezma daily) How often does anyone, including family, friends and others, physically hurt you: never How often does anyone, including family, friends and others, insult or talk down to you: never How often does anyone, including family, friends and others, threaten you with harm: never How often does anyone, including family, friends and others, scream or curse at you: never Exam Narrative: Exam Narrative: Overweight, well-developed patient in no acute distress. Alert and oriented. Answers questions appropriately. Mood and affect are appropriate. Thoughts are goal oriented and rational. No tangential or magical thinking noted. Patient speaks in full sentences without needing to catch his breath. HEENT: Normocephalic atraumatic. Pupils are equally round reactive to light. Extraocular muscles are intact. Conjunctivae are moist without any icterus noted. Moist mucous membranes. Abdomen: Protuberant, soft with normal bowel sounds. : Fresh blood coming out of the urethral meatus. There is no penile scrotal swelling noted. No tenderness to the groin area. Const: Vital Signs, click to edit/add: Vital Signs - 24 hr 04/28/25 10:21 04/28/25 11:27 04/28/25 12:49 Temperature 97.9 F Pulse Rate Pulse Rate [Pulse Oximeter] 97 89 108 H Respiratory Rate 16 18 18 Blood Pressure Blood Pressure [Ri ght Upper Arm] 135/84 101/57 L 92/68 Pulse Oximetry 95 98 98 Oxygen Delivery Me thod Room Air Room Air Room Air 04/28/25 13:01 04/28/25 13:02 04/28/25 13:15 Temperature Pulse Rate 101 H 102 H 103 H Pulse Rate [Pulse Oximeter] Respiratory Rate Blood Pressure 117/77 Blood Pressure [Ri ght Upper Arm] Pulse Oximetry 98 98 98 Oxygen Delivery Me thod 04/28/25 13:17 04/28/25 13:18 04/28/25 13:30 Temperature Pulse Rate 104 H 103 H 98 Pulse Rate [Pulse Oximeter] Respiratory Rate Blood Pressure 95/70 Blood Pressure [Ri ght Upper Arm] Pulse Oximetry 100 98 92 Oxygen Delivery Me thod 04/28/25 13:31 04/28/25 13:45 04/28/25 13:47 Temperature Pulse Rate 99 94 93 Pulse Rate [Pulse Oximeter] Respiratory Rate Blood Pressure 98/68 87/53 L Blood Pressure [Ri ght Upper Arm] Pulse Oximetry 96 94 94 Oxygen Delivery Me thod 04/28/25 13:49 04/28/25 14:00 04/28/25 14:01 Temperature Pulse Rate 94 94 95 Pulse Rate [Pulse Oximeter] Respiratory Rate Blood Pressure 82/58 L 94/60 Blood Pressure [Ri ght Upper Arm] Pulse Oximetry 97 96 95 Oxygen Delivery Me thod 04/28/25 14:02 04/28/25 14:15 04/28/25 14:16 Temperature Pulse Rate 96 96 96 Pulse Rate [Pulse Oximeter] Respiratory Rate Blood Pressure 89/56 L Blood Pressure [Ri ght Upper Arm] Pulse Oximetry 96 91 91 Oxygen Delivery Me thod 04/28/25 14:30 04/28/25 14:32 04/28/25 14:45 Temperature Pulse Rate 97 93 96 Pulse Rate [Pulse Oximeter] Respiratory Rate Blood Pressure 99/50 L Blood Pressure [Ri ght Upper Arm] Pulse Oximetry 95 93 94 Oxygen Delivery Me thod 04/28/25 14:46 04/28/25 15:00 04/28/25 15:01 Temperature Pulse Rate 87 97 Pulse Rate [Pulse Oximeter] Respiratory Rate 18 Blood Pressure 81/62 L 102/73 Blood Pressure [Ri ght Upper Arm] Pulse Oximetry 94 94 Oxygen Delivery Me thod 04/28/25 15:02 04/28/25 15:15 04/28/25 15:20 Temperature Pulse Rate 98 97 97 Pulse Rate [Pulse Oximeter] Respiratory Rate Blood Pressure Blood Pressure [Ri ght Upper Arm] Pulse Oximetry 93 95 94 Oxygen Delivery Me thod 04/28/25 15:30 04/28/25 15:32 Temperature Pulse Rate 98 97 Pulse Rate [Pulse Oximeter] Respiratory Rate 16 Blood Pressure 92/61 Blood Pressure [Ri ght Upper Arm] Pulse Oximetry 94 95 Oxygen Delivery Me thod Course Course ED Course: CBC had a slightly low white cell count of 4.18, otherwise unremarkable. Chemistries were unremarkable. Abdominal CT scan showed distended urinary bladder. Patient did leave a UA at this point which was grossly abnormal. Postvoid bladder scan showing [address] Fernando, urology at the of who recommended patient be transferred to a you are that had retrograde urethrogram capability. Started calling closest hospitals to us for that. In the meantime patient blood pressure did start to drop from 135/84 to 101/57 to 92/68. Pulse did go from 97 to 108. This time started a L of normal saline and repeated a hemoglobin. Did get a hold of Dr. Willis at [facility] who then contacted the urologist. They have accepted the patient for transfer. Patient felt fine while he was here did not have any dizziness, shortness of breath or chest pain. His blood pressure oscillating between the upper 80s to the low 100's systolic. Vital Signs Vital signs: Initial Vital Signs Temperature 97.9 F 04/28/25 10:21 Temperature Source Temporal Artery Scan 04/28/25 10:21 Pulse Rate 97 04/28/25 10:21 Respiratory Rate 16 04/28/25 10:21 Blood Pressure 135/84 04/28/25 10:21 Blood Pressure Mean 101 04/28/25 10:21 Pulse Oximetry 95 04/28/25 10:21 Oxygen Delivery Method Room Air 04/28/25 10:21 Vital Signs Temperature 97.9 F 04/28/25 10:21 Pulse Rate 97 04/28/25 10:21 Respiratory Rate 16 04/28/25 10:21 Blood Pressure 135/84 04/28/25 10:21 Pulse Oximetry 95 04/28/25 10:21 Oxygen Delivery Method Room Air 04/28/25 10:21 Temperature 97.9 F 04/28/25 10:21 Pulse Rate 97 04/28/25 15:32 Respiratory Rate 16 04/28/25 15:32 Blood Pressure 92/61 04/28/25 15:32 Pulse Oximetry 95 04/28/25 15:32 Oxygen Delivery Method Room Air 04/28/25 12:49 Medications Administered Medications: Discontinued Medications Generic Name Dose Route Start Last Admin Trade Name Freq PRN Reason Stop Dose Admin Sodium Chloride 1,000 mls @ 1,000 mls/hr 04/28/25 13:00 04/28/25 14:08 0.9 % Sodium Chloride 1000 Ml IV 04/28/25 13:59 Infused .Q1H CALVIN Infusion Medical Decision Making MDM Narrative Medical decision making narrative: 64-year-old male with bleeding from the urethra. Patient will be transferred to [facility] for urological services. Lab Data Lab results reviewed: Yes I reviewed the patient's lab results Labs: Lab Results 04/28/25 04/28/25 04/28/25 Range/Units 10:29 10:31 10:35 WBC 4.18 L (4.50-11.00) K/uL RBC 5.31 (4.30-5.90) m/uL Hgb 16.1 (13.5-17.5) gm/dL Hct 48.8 (37.0-53.0) % MCV 92 (80-100) fL MCH 30 (26-34) pg MCHC 33 (32-36) gm/dL RDW Coeff of Swapna 13.9 (11.5-15.5) % Plt Count 239 (140-440) K/uL Neut % (Auto) 69.5 (42.0-72.0) % Lymph % (Auto) 24.6 (20-44) % [place] % (Auto) 1.0 (0.0-11.0) % Eos % (Auto) 2.9 (0.0-7.0) % Baso % (Auto) 1.0 (0.0-3.0) % Neut # (Auto) 2.90 (1.7-7.0) K/uL Lymph # (Auto) 1.00 (0.90-2.90) K/uL [place] # (Auto) 0.00 (0.00-0.90) K/UL Eos # (Auto) 0.10 (0.00-0.50) K/uL Baso # (Auto) 0.00 (0.00-0.30) K/uL Abs Immat Gran (auto) 0.00 (0.00-0.30) K/uL Imm/Tot Granulo (auto) 1.0 % Sodium 137 (135-149) mmol/L Potassium 4.9 (3.6-5.1) mmol/L Chloride 101 (96-114) mmol/L Carbon Dioxide 27 (20-32) mmol/L Anion Gap 9 (7-15) mEq/L BUN 24 (7-30) mg/dL Creatinine 1.1 (0.5-1.5) mg/dL Estimated Creat Clear 68.21 Estimated GFR 74 ml/min Glucose 126 H (60-115) mg/dL Calcium 9.9 (8.4-10.6) mg/dL Urine Color (Yellow) Urine Appearance (Clear) Urine pH (5.0-8.5) Ur Specific [place] (1.000-1.030) Urine Protein (Negative) Urine Glucose (UA) (Negative) Urine Ketones (Negative) Urine Blood (Negative) Urine Nitrite (Negative) Urine Bilirubin (Negative) Urine Urobilinogen (0.2-1.0) Ur Leukocyte Esterase (Negative) Urine RBC (0-2) Urine WBC (0-5) Ur Squamous Epith Cells (None-Few) Urine Bacteria (None) POC Creatinine 1.2 (0.6-1.3) mg/dl Blood Type Antibody Screen 04/28/25 04/28/25 04/28/25 Range/Units 11:35 13:05 14:05 WBC (4.50-11.00) K/uL RBC (4.30-5.90) m/uL Hgb 16.4 (13.5-17.5) gm/dL Hct (37.0-53.0) % MCV (80-100) fL MCH (26-34) pg MCHC (32-36) gm/dL RDW Coeff of Swapna (11.5-15.5) % Plt Count (140-440) K/uL Neut % (Auto) (42.0-72.0) % Lymph % (Auto) (20-44) % [place] % (Auto) (0.0-11.0) % Eos % (Auto) (0.0-7.0) % Baso % (Auto) (0.0-3.0) % Neut # (Auto) (1.7-7.0) K/uL Lymph # (Auto) (0.90-2.90) K/uL [place] # (Auto) (0.00-0.90) K/UL Eos # (Auto) (0.00-0.50) K/uL Baso # (Auto) (0.00-0.30) K/uL Abs Immat Gran (auto) (0.00-0.30) K/uL Imm/Tot Granulo (auto) % Sodium (135-149) mmol/L Potassium (3.6-5.1) mmol/L Chloride (96-114) mmol/L Carbon Dioxide (20-32) mmol/L Anion Gap (7-15) mEq/L BUN (7-30) mg/dL Creatinine (0.5-1.5) mg/dL Estimated Creat Clear Estimated GFR ml/min Glucose (60-115) mg/dL Calcium (8.4-10.6) mg/dL Urine Color Brown A (Yellow) Urine Appearance Cloudy A (Clear) Urine pH 6.0 (5.0-8.5) Ur Specific [place] 1.020 (1.000-1.030) Urine Protein 1+ A (Negative) Urine Glucose (UA) Negative (Negative) Urine Ketones Negative (Negative) Urine Blood 3+ A (Negative) Urine Nitrite Positive A (Negative) Urine Bilirubin Negative (Negative) Urine Urobilinogen 0.2 (0.2-1.0) Ur Leukocyte Esterase Trace A (Negative) Urine RBC >100 A (0-2) Urine WBC 2-5 (0-5) Ur Squamous Epith Cells Few (None-Few) Urine Bacteria Many A (None) POC Creatinine (0.6-1.3) mg/dl Blood Type O Positive Antibody Screen NEGATIVE Imaging Data CT pelvis: Attestation: I have reviewed the pertinent imaging results. Radiologist's impression: TECHNIQUE: CT pelvis acquired with 100 cc Omnipaque 350 IV contrast. COMPARISON: None. FINDINGS: Urinary bladder is distended. Is partially obscured by streak artifact from bilateral hip arthroplasties. Metal reduction series were submitted only partially spans the urinary bladder. There is evidence of a heterogeneous enlarged prostate with mass effect on the posterior bladder wall. Mild indeterminate urinary bladder wall thickening is seen. No significant inflammatory fat stranding is seen. Indeterminate rectal wall thickening, not well evaluated on CT. The remainder of the visualized bowel is unremarkable. A fat containing umbilical hernia is noted measuring approximately 3.9 x 2.1 centimeters. Some soft tissue infiltration of the fat could represent mild inflammation. Small fat containing inguinal hernias are noted. No ascites. No organized drainable fluid collection. A 10 x 18 millimeter left iliac lymph node is seen (series 2, image 32). There are smaller lymph nodes noted. No inguinal lymphadenopathy. No subcutaneous hematoma. Minimal stranding within the subcutaneous fat of the anterior abdomen, likely chronic inflammation. Bone windows were not submitted. This limits evaluation of the bones. Bilateral hip arthroplasties are again noted. There is heterotopic ossification noted about the hips with no definite acute fracture. IMPRESSION: 1. The pelvis is obscured by bilateral hip arthroplasties. 2. Distended urinary bladder with mild thickening. Obscured enlarged prostate with mass effect on the posterior bladder wall. Recommend correlation with urinalysis, urine cytology and PSA. Follow-up cystoscopy may be performed for further evaluation if clinically indicated. 3. Small fat containing umbilical hernia. Mild infiltration of the hernia fat could represent inflammation. Recommend correlation with physical examination. 4. Borderline dilated left pelvic lymph node with otherwise no lymphadenopathy. Recommend close attention on follow-up. Discharge Plan Discharge Clinical Impression: Bleeding from the urethra Patient Disposition: Xfer Other Discharge Location: [facility] Condition: Stable Prescriptions: No Action allopurinol 300 mg tablet 300 mg PO QDAY Qty: 90 3RF amoxicillin 500 mg capsule 2,000 mg PO ONCE Qty: 12 1RF Rx Instructions: Patient to take 4 caps one hour before dental appts. hydrochlorothiazide 25 mg tablet 25 mg PO QDAY Qty: 90 3RF lisinopril 20 mg tablet 20 mg PO QDAY Qty: 90 3RF tamsulosin 0.4 mg capsule 0.8 mg PO QDAY Qty: 180 3RF diclofenac sodium 75 mg tablet,delayed release (DR/EC) 75 mg PO BID PRN (Reason: pain) metformin 500 mg tablet 500 mg PO BID Qty: 180 2RF aspirin 81 mg tablet,delayed release (DR/EC) 81 mg PO QDAY cholecalciferol (vitamin D3) 25 mcg (1,000 unit) tablet 25 mcg PO DAILY magnesium 200 mg tablet 200 mg PO QDAY flaxseed oil 1,000 mg capsule 2,600 mg PO QDAY Rx Instructions: administer with a meal glucosamine HCl 1,500 mg tablet 1,500 mg PO BID berberine chloride 500 mg capsule 500 mg PO .QD hydrocortisone 2.5 % cream 1 applic topical BID PRN (Reason: rash) Qty: 30 3RF (DME) Blood Glucose Meter Misc See Rx Instructions .ROUTE .MEDSUPPLY Qty: 1 0RF Rx Instructions: As directed (DME) Diabetic Test Strips Misc See Rx Instructions .ROUTE .MEDSUPPLY Qty: 100 3RF Rx Instructions: bid prn (DME) lancets [CareTouch Safety Lancets] 28 gauge misc See Rx Instructions .ROUTE .MEDSUPPLY Qty: 100 3RF Rx Instructions: As directed Stand Alone Forms: [facility] Info Instructions
[2025-04-28 10:47] LABS: Creatinine, Point-of-Care* 1.2 mg/dl (0.6-1.3)
[2025-04-28 11:11] LABS: Hematocrit 48.8 % (37.0-53.0); Hemoglobin* 16.1 gm/dL (13.5-17.5); Immature Granulocytes Pct Auto 1.0 %; Mean Corpuscular HGB Conc 33 gm/dL (32-36); Mean Corpuscular Hemoglobin 30 pg (26-34); Mean Corpuscular Volume 92 fL (80-100); RDW Coefficient of Variation % 13.9 % (11.5-15.5); Red Blood Count 5.31 m/uL (4.30-5.90); White Blood Count* 4.18 K/uL (4.50-11.00)
[2025-04-28 11:16] LABS: Immature Granulocytes Abs Auto 0.00 K/uL (0.00-0.30); Lymphocytes Absolute Auto 1.00 K/uL (0.90-2.90); Slide Review Reflex No
[2025-04-28 11:23] LABS: Chloride* 101 mmol/L (96-114)
[2025-04-28 11:24] LABS: Potassium* 4.9 mmol/L (3.6-5.1); Sodium* 137 mmol/L (135-149)
[2025-04-28 11:26] LABS: Blood Urea Nitrogen* 24 mg/dL (7-30); Creatinine* 1.1 mg/dL (0.5-1.5); Est. Creatinine Clearance* 68.21; Estimated Glomerular Filt Rate 74 ml/min
[2025-04-28 11:27] LABS: Anion Gap 9 mEq/L (7-15); Calcium* 9.9 mg/dL (8.4-10.6); Carbon Dioxide* 27 mmol/L (20-32); Glucose* 126 mg/dL (60-115)
[2025-04-28 11:45] LABS: Appearance Urine Cloudy (Clear)
[2025-04-28 13:31] LABS: Hemoglobin* 16.4 gm/dL (13.5-17.5)
== END 2025-04-28 16:17 | disposition other institution (70) ==
PROVIDERS: Emergency Provider Family Medicine; PCP Family Medicine
DX: N36.8 Other specified disorders of urethra (principal)
CPT/HCPCS: 36415; 72193; 80048; 81001; 82565; 85018; 85025; 86850; 86900; 86901; 87086; 99284; 99285; J7030; Q9967

== ENCOUNTER 2025-04-28 16:14 | Outpatient (CLI) | payer MEDICARE, BC, SELFPAY | END 2025-04-28 16:15 | disposition home or self-care (01) | PROVIDERS: PCP Family Medicine; Visit Provider Family Medicine | DX: N36.8 Other specified disorders of urethra (principal) | CPT/HCPCS: A0425; A0427 ==

== ENCOUNTER 2025-05-24 11:08 | Outpatient (CLI) | payer MEDICARE, BC, SELFPAY ==
--- NOTE | 2025-05-24 11:30 | CRLHL7_ITS ---
For Patients: As a result of the Century Cures Act, medical imaging exams and procedure reports are released immediately into your electronic medical record. You may view this report before your referring provider. If you have questions, please contact your health care provider. INDICATION: Discomfort COMPARISON: none TECHNIQUE: Hall scale imaging was performed of the scrotum. In addition color Doppler and spectral Doppler analysis was performed of the testes. FINDINGS: The right testicle demonstrates normal arterial and venous blood flow on color Doppler and spectral Doppler analysis. Increased color Doppler flow involving the left testicle and left epididymis the testes have uniform echogenicity with no evidence of a suspicious mass or area of inflammation. The right testis measures 4.6 x 2.4 x 3.1 cm in size and the left testis measures 4.1 x 3.2 x 2.8 cm. Left hydrocele. Heterogeneity of the epididymis with an area of decreased echotexture which measures 1.9 x 0.7 x 0.8 cm. Normal right epididymis. IMPRESSION: Left epididymal orchitis. Possible developing small abscess in the left epididymis. Left hydrocele. Dictated by Jerrell Sosa MD @ 05/24/2025 12:29:18 PM (Electronically Signed)
== END 2025-05-24 11:09 | disposition home or self-care (01) ==
LOC: US 11:09
PROVIDERS: PCP Family Medicine; Visit Provider Family Medicine
DX: N50.89 Other specified disorders of the male genital organs (principal); N45.2 Orchitis; N43.3 Hydrocele, unspecified
CPT/HCPCS: 76870; 87086; 93976